=== PATIENT | male | born 1980 | race Two or more races ===

== ENCOUNTER 2021-10-20 16:57 | Inpatient (IN) | payer OTHER, MEDICAID, SELFPAY ==
[2021-10-20] VITALS (7 sets, daily range): BP systolic 80–112; BP diastolic 51–69; PULSE 89–131; RESP 19–22; TEMP 35–36.1; O2SAT 85–100; BMI 34.6
--- NOTE | 2021-10-20 | ECG_ITS ---
Test Reason : REPEAT Blood Pressure : / mmHG Vent. Rate : 096 BPM Atrial Rate : 096 BPM P-R Int : 126 ms QRS Dur : 086 ms QT Int : 366 ms P-R-T Axes : 073 029 023 degrees QTc Int : 462 ms Normal sinus rhythm Normal ECG No significant changes when compared with the previous EKG of same day Referred By: Enrike Carson Electronically Signed By:EMERY EPPERSON
--- NOTE | ~2021-10-20 | XR_ITS ---
EXAMINATION: XR CHEST CLINICAL INFORMATION: Overdose with hypoxia COMPARISON: None TECHNIQUE: Frontal view of the chest was obtained. FINDINGS: Lungs are hypoexpanded. Bibasilar atelectasis is present, left greater than right. Allowing for this, no other abnormalities are seen. XR/XR chest 1V IMPRESSION: Hypoexpanded lungs with bibasilar atelectasis.
--- NOTE | ~2021-10-20 | CT_ITS ---
EXAMINATION: CT HEAD WITHOUT CONTRAST CLINICAL INFORMATION: Altered mental status. COMPARISON: None. TECHNIQUE: Contiguous axial imaging was performed from the skull base to vertex without intravenous administration of contrast. This CT examination was performed using dose optimization techniques as appropriate, variously including the following: *Automated exposure control *Adjustment of mA and/or kV according to patient size (this includes techniques or standardized protocols for targeted exams where dose is matched to indication/reason for exam; i.e. extremities or head) *Use of iterative reconstruction technique DLP: 929 mGy-cm FINDINGS: There is no evidence of acute intracranial hemorrhage or edematous territorial infarction. There is no abnormal attenuation within the brain parenchyma. Petty-white matter differentiation is preserved. The ventricles are normal in size and configuration. No evidence for obstructive hydrocephalus. No abnormal mass effect or midline shift. No extra-axial fluid collections. No acute soft tissue or osseous abnormalities. Complete opacification of the right maxillary sinus and partial opacification of right ethmoid air cells and right frontal sinus. The content of the right maxillary sinus is slightly hyperattenuating and heterogeneous. The mastoids and middle ear cavities are clear. There are extensive periapical lucencies involving multiple right-sided superior teeth. CT/CT head/brain wo con IMPRESSION: No evidence of acute intracranial hemorrhage or edematous territorial infarction. Osteomeatal pattern of paranasal sinus disease with heterogeneous and slightly hyperattenuating content in the right maxillary sinus suggesting mucous desiccation or fungal hyphae. There are several periapical lucencies adjacent to the right maxillary sinus and an odontogenic sinusitis should be considered. Recommend dental referral.
--- NOTE | ~2021-10-20 | XR_ITS ---
EXAMINATION: XR CHEST CLINICAL INFORMATION: Hypoxia, possible aspiration COMPARISON: Chest x-ray on 10/20/2021 TECHNIQUE: Frontal view of the chest was obtained. FINDINGS: The cardiac silhouette is normal. There is mild diffuse bronchial wall thickening. There are no areas of consolidation. There are no pleural effusions or pneumothoraces. The bones and soft tissues are unremarkable for the patient's age. XR/XR chest 1V IMPRESSION: Bronchial wall thickening may be infectious and/or inflammatory in etiology.
--- NOTE | 2021-10-20 17:21 | ECG_ITS ---
Test Reason : AMS Blood Pressure : / mmHG Vent. Rate : 123 BPM Atrial Rate : 000 BPM P-R Int : 000 ms QRS Dur : 088 ms QT Int : 306 ms P-R-T Axes : 000 023 021 degrees QTc Int : 438 ms Atrial fibrillation with rapid ventricular response Abnormal ECG No previous ECGs available Referred By: Hubert Rosa Electronically Signed By:EMERY EPPERSON
--- NOTE | 2021-10-20 17:23 | ED.OVERDOSE ---
HPI - Overdose General Chief Complaint: Overdose Stated Complaint: Took Unknown Pill Time Seen by Provider: 10/20/21 17:19 Source: patient, family (Significant other), EMS and american sign language interpreter Mode of arrival: EMS Limitations: no limitations History of Present Illness HPI Narrative: 41-year-old male came in by ambulance for evaluation after overdose of unknown pill in both from the street. Patient has been complaining of toothache for the past couple days, patient brought from the street unknown blue pill was told is going to help for his pain, patient took the pills then shortly after call his girlfriend to come and help him because he did not feel right, noted to be incoherent, lethargic. Patient at the moment declined SI or HI, confirmed that he only took 1 blue pill of the 30 mg assuming to be Percocet. Related Data Allergies Allergy/AdvReac Type Severity Reaction Status Date / Time No Known Allergies Allergy Verified 10/20/21 17:20 Review of Systems Review of Systems: Yes Unobtainable due to mental condition and Unobtainable due to mental status (Patient is lethargic) [facility] Social History Social History Advance Directives: No Advance Directives Information Provided: Yes Physical Exam Vital Signs: Vital Signs: Last Vital Signs Temp 97 F 10/20/21 19:59 Pulse 97 10/20/21 19:59 Resp 19 10/20/21 19:59 BP 92/55 L 10/20/21 19:59 Pulse Ox 93 10/20/21 19:59 BMI result Body Mass Index 34.6 Vital signs have been reviewed as appeared to be correct. Blood pressure low. Heart rate elevated . Respiration rate normal. Temperature normal. Oxygen saturation low. Appearance: Alert. Oriented, lethargic, No acute distress. Head: Normal external exam. Normocephalic. Atraumatic. No Calles signs noted. No raccoon eyes noted Eyes: PERRLA. EOMI. Conjunctiva and sclera normal. Eyelids normal. ENT: TM's Normal. Pharynx normal. Uvula midline. Moist mucous membranes. No trismus noted. No drooling noted. No muffled voice noted. Neck: Normal inspection. Neck supple. FROM. No adenopathy. Thyroid Normal. No meningeal signs. No neck mass noted. CVS: Normal heart rate and rhythm. Heart sound normal. No murmurs noted. Pulses normal throughout. Respiratory: No respiratory distress. Painless inspiration. Breath sounds normal. No wheezes/rales/rhonchi noted. Chest nontender. No accessory muscle usage noted or decreased air movement noted. Abdomen: Soft and nontender. Bowel sounds normal in all 4 quadrants. No distention noted. No organomegaly noted. No visible injury noted. Back: No CVA tenderness. Full range of motion noted. Skin: Skin warm and dry. Normal skin color. Normal skin turgor. No rashes/lesions/lacerations noted. Extremities: No lower extremity edema. Extremities exhibit normal range of motion. Extremities nontender. Neuro: Lethargic, incoherent. Cranial nerve exam: II-XII are grossly intact No motor deficit. No sensory deficit. Reflexes normal. Course Course Course Narrative: Assessment and plan. 41-year-old male status post drug use only used 1 pill caused him to change mental status, tachycardia with new onset atrial fibrillation, patient remained hypotensive, with acute change of mental status. Abnormal findings partially improved after 2 mg of Narcan IV. 1. Patient became hypoxic, improved with 6 L of non-rebreather, chest x-ray is unremarkable for congestive heart failure or infectious process. 2. Hypotension which improved after 2 L of normal saline. 3. Tachycardia with new onset atrial fibrillation improved after IV hydration. 4. Change mental status has improved. 5. Elevation BUN creatinine expected to normalize after hydration and with repeat labs. 6. Elevated troponin will repeat in 3 hours. 7. Case discussed with Dr. Boyd for overnight observation in ICU since the patient is improving clinically Dr. Boyd approved the patient to be on the floor for observation. 8. Leukocytosis there is no source of infection. MDM - Overdose Lab Data Result diagrams: 10/20/21 17:26 10/20/21 17:26 Labs: Lab Results 10/20/21 10/20/21 10/20/21 Range/Units 17:26 17:26 17:26 WBC 20.4 H (4.8-10.8) X10*3/uL RBC 4.46 L (4.60-5.80) X10*6/uL Hgb 12.4 L (14.0-18.0) g/dl Hct 41.8 L (42.0-52.0) % MCV 93.7 (80.0-98.0) fL MCH 27.8 (27.0-33.0) pg MCHC 29.7 L (31.0-36.0) g/dl RDW 13.2 (11.0-16.0) % Plt Count 383 (160-400) X10*3/uL MPV 9.6 (9.4-12.4) fL Immature Gran % (Auto) 4.7 H (0.0-0.4) % Neut % (Auto) 87.1 H (45-73) % Lymph % (Auto) 5.7 L (20-40) % [place] % (Auto) 2.2 (2-11) % Eos % (Auto) 0.1 (0-4) % Baso % (Auto) 0.2 (0-2) % Lymph # (Auto) 1.2 (1.2-4.9) X10*3/uL [place] # (Auto) 0.5 (0.1-1.2) X10*3/uL Eos # (Auto) 0.0 (0.0-0.4) X10*3/uL Baso # (Auto) 0.1 (0.0-0.2) X10*3/uL Abs Immat Gran (auto) 0.95 H (0.00-0.03) X10*3/uL Absolute Neuts (auto) 17.8 H (2.0-8.3) x10*3/uL Absolute Nucleated RBC 0.000 (0.0-0.012) X10*3/uL Nucleated RBC % (auto) 0.0 (0.0-0.2) /100WBC VBG pH (7.32-7.43) VBG pCO2 mmHg VBG pO2 mmHg VBG HCO3 (22-26) mmol/L VBG O2 Saturation % VBG Base Excess mmol/L Sodium 141 (135-145) mmol/L Potassium 4.9 (3.3-5.1) mmol/L Chloride 107 (96-108) mmol/L Carbon Dioxide 18 L (22-29) mmol/L Anion Gap 21 H (12-20) BUN 17 H (9-16) mg/dL Creatinine 2.22 H (0.5-1.4) mg/dL Estim Creat Clear Calc 57.5 Estimated GFR 33 Random Glucose 152 H (60-115) mg/dL Calcium 9.3 (8.4-10.2) mg/dL Magnesium 2.6 (1.6-2.6) mg/dL Total Bilirubin < 0.2 (0.0-1.0) mg/dL Direct Bilirubin < 0.2 (0.0-0.5) mg/dL AST 41 H (5-37) U/L ALT 38 (0-40) U/L Alkaline Phosphatase 96 (39-117) U/L Troponin I High Sens (<3.5-35.0) ng/L B-Natriuretic Peptide 157 H (<100) pg/mL Total Protein 7.8 (6.5-8.0) g/dL Albumin 4.2 (3.5-5.0) g/dL Lipase 86 H (8-78) U/L Urine Color Urine Appearance Urine pH (5.0-8.0) Ur Specific [place] (1.005-1.025) Urine Protein (NEG-TRACE) MG/DL Urine Glucose (UA) (NEG) MG/DL Urine Ketones (NEG) MG/DL Urine Blood (NEG) Urine Nitrite (NEG) Ur Leukocyte Esterase (NEG) Salicylates < 5.0 L (15-30) mg/dL Urine Opiates Screen (Not Detect) Urine Fentanyl Screen (Not Detect) Acetaminophen < 1 (<30) mcg/mL Ur Barbiturates Screen (Not Detect) Ur Phencyclidine Scrn (Not Detect) Ur Amphetamines Screen (Not Detect) U Benzodiazepines Scrn (Not Detect) Urine Cocaine Screen (Not Detect) U Marijuana (THC) Screen (Not Detect) 10/20/21 10/20/21 10/20/21 Range/Units 17:54 17:54 19:19 WBC (4.8-10.8) X10*3/uL RBC (4.60-5.80) X10*6/uL Hgb (14.0-18.0) g/dl Hct (42.0-52.0) % MCV (80.0-98.0) fL MCH (27.0-33.0) pg MCHC (31.0-36.0) g/dl RDW (11.0-16.0) % Plt Count (160-400) X10*3/uL MPV (9.4-12.4) fL Immature Gran % (Auto) (0.0-0.4) % Neut % (Auto) (45-73) % Lymph % (Auto) (20-40) % [place] % (Auto) (2-11) % Eos % (Auto) (0-4) % Baso % (Auto) (0-2) % Lymph # (Auto) (1.2-4.9) X10*3/uL [place] # (Auto) (0.1-1.2) X10*3/uL Eos # (Auto) (0.0-0.4) X10*3/uL Baso # (Auto) (0.0-0.2) X10*3/uL Abs Immat Gran (auto) (0.00-0.03) X10*3/uL Absolute Neuts (auto) (2.0-8.3) x10*3/uL Absolute Nucleated RBC (0.0-0.012) X10*3/uL Nucleated RBC % (auto) (0.0-0.2) /100WBC VBG pH (7.32-7.43) VBG pCO2 mmHg VBG pO2 mmHg VBG HCO3 (22-26) mmol/L VBG O2 Saturation % VBG Base Excess mmol/L Sodium (135-145) mmol/L Potassium (3.3-5.1) mmol/L Chloride (96-108) mmol/L Carbon Dioxide (22-29) mmol/L Anion Gap (12-20) BUN (9-16) mg/dL Creatinine (0.5-1.4) mg/dL Estim Creat Clear Calc Estimated GFR Random Glucose (60-115) mg/dL Calcium (8.4-10.2) mg/dL Magnesium (1.6-2.6) mg/dL Total Bilirubin (0.0-1.0) mg/dL Direct Bilirubin (0.0-0.5) mg/dL AST (5-37) U/L ALT (0-40) U/L Alkaline Phosphatase (39-117) U/L Troponin I High Sens 39.1 H (<3.5-35.0) ng/L B-Natriuretic Peptide (<100) pg/mL Total Protein (6.5-8.0) g/dL Albumin (3.5-5.0) g/dL Lipase (8-78) U/L Urine Color YELLOW Urine Appearance CLEAR Urine pH 7.0 (5.0-8.0) Ur Specific [place] 1.010 (1.005-1.025) Urine Protein NEG (NEG-TRACE) MG/DL Urine Glucose (UA) NEG (NEG) MG/DL Urine Ketones NEG (NEG) MG/DL Urine Blood NEG (NEG) Urine Nitrite NEG (NEG) Ur Leukocyte Esterase NEG (NEG) Salicylates (15-30) mg/dL Urine Opiates Screen Not Detected (Not Detect) Urine Fentanyl Screen POSITIVE H (Not Detect) Acetaminophen (<30) mcg/mL Ur Barbiturates Screen Not Detected (Not Detect) Ur Phencyclidine Scrn Not Detected (Not Detect) Ur Amphetamines Screen Not Detected (Not Detect) U Benzodiazepines Scrn Not Detected (Not Detect) Urine Cocaine Screen POSITIVE H (Not Detect) U Marijuana (THC) Screen POSITIVE H (Not Detect) 10/20/21 Range/Units 19:19 WBC (4.8-10.8) X10*3/uL RBC (4.60-5.80) X10*6/uL Hgb (14.0-18.0) g/dl Hct (42.0-52.0) % MCV (80.0-98.0) fL MCH (27.0-33.0) pg MCHC (31.0-36.0) g/dl RDW (11.0-16.0) % Plt Count (160-400) X10*3/uL MPV (9.4-12.4) fL Immature Gran % (Auto) (0.0-0.4) % Neut % (Auto) (45-73) % Lymph % (Auto) (20-40) % [place] % (Auto) (2-11) % Eos % (Auto) (0-4) % Baso % (Auto) (0-2) % Lymph # (Auto) (1.2-4.9) X10*3/uL [place] # (Auto) (0.1-1.2) X10*3/uL Eos # (Auto) (0.0-0.4) X10*3/uL Baso # (Auto) (0.0-0.2) X10*3/uL Abs Immat Gran (auto) (0.00-0.03) X10*3/uL Absolute Neuts (auto) (2.0-8.3) x10*3/uL Absolute Nucleated RBC (0.0-0.012) X10*3/uL Nucleated RBC % (auto) (0.0-0.2) /100WBC VBG pH 7.28 L (7.32-7.43) VBG pCO2 35 mmHg VBG pO2 135 mmHg VBG HCO3 17 L (22-26) mmol/L VBG O2 Saturation 99.0 % VBG Base Excess -8.7 mmol/L Sodium (135-145) mmol/L Potassium (3.3-5.1) mmol/L Chloride (96-108) mmol/L Carbon Dioxide (22-29) mmol/L Anion Gap (12-20) BUN (9-16) mg/dL Creatinine (0.5-1.4) mg/dL Estim Creat Clear Calc Estimated GFR Random Glucose (60-115) mg/dL Calcium (8.4-10.2) mg/dL Magnesium (1.6-2.6) mg/dL Total Bilirubin (0.0-1.0) mg/dL Direct Bilirubin (0.0-0.5) mg/dL AST (5-37) U/L ALT (0-40) U/L Alkaline Phosphatase (39-117) U/L Troponin I High Sens (<3.5-35.0) ng/L B-Natriuretic Peptide (<100) pg/mL Total Protein (6.5-8.0) g/dL Albumin (3.5-5.0) g/dL Lipase (8-78) U/L Urine Color Urine Appearance Urine pH (5.0-8.0) Ur Specific [place] (1.005-1.025) Urine Protein (NEG-TRACE) MG/DL Urine Glucose (UA) (NEG) MG/DL Urine Ketones (NEG) MG/DL Urine Blood (NEG) Urine Nitrite (NEG) Ur Leukocyte Esterase (NEG) Salicylates (15-30) mg/dL Urine Opiates Screen (Not Detect) Urine Fentanyl Screen (Not Detect) Acetaminophen (<30) mcg/mL Ur Barbiturates Screen (Not Detect) Ur Phencyclidine Scrn (Not Detect) Ur Amphetamines Screen (Not Detect) U Benzodiazepines Scrn (Not Detect) Urine Cocaine Screen (Not Detect) U Marijuana (THC) Screen (Not Detect) Critical Care Time Critical Care Time Critical Care Time: Yes Total Critical Care Time: 60 Attestation: I spent 60 minutes providing critical care service to the patient, this including time spent at the bedside to evaluate the patient, reassess the patient, monitoring vital signs, review labs, and radiographic studies, counseling the patient/family, discussing the case with consultants, disposition the patient. Discharge Plan Discharge Clinical Impression: Drug overdose, Hypoxia, Hypotension, Acute kidney insufficiency, Elevated troponin, New onset a-fib Patient Disposition: Admitted As Inpatient
[2021-10-20 17:31] LABS: MANUAL DIFF FLAG NO
[2021-10-20 17:33] LABS: Basophils Absolute Auto 0.1 X10*3/uL (0.0-0.2); Basophils Percent Auto 0.2 % (0-2); Eosinophils Percent Auto 0.1 % (0-4); Hematocrit 41.8 % (42.0-52.0); Hemoglobin 12.4 g/dl (14.0-18.0); Imm Gran Abs Auto 0.95 X10*3/uL (0.00-0.03); Imm Gran Pct Auto 4.7 % (0.0-0.4); Lymphocytes Absolute Auto 1.2 X10*3/uL (1.2-4.9); Lymphocytes Percent Auto 5.7 % (20-40); Mean Corpuscular HGB Conc 29.7 g/dl (31.0-36.0); Mean Corpuscular Hemoglobin 27.8 pg (27.0-33.0); Mean Corpuscular Volume 93.7 fL (80.0-98.0); Mean Platelet Volume 9.6 fL (9.4-12.4); Monocytes Absolute Auto 0.5 X10*3/uL (0.1-1.2); Monocytes Percent Auto 2.2 % (2-11); Neutrophils Absolute Auto 17.8 x10*3/uL (2.0-8.3); Neutrophils Percent Auto 87.1 % (45-73); Platelet Count 383 X10*3/uL (160-400); Red Blood Count 4.46 X10*6/uL (4.60-5.80); Red Cell Distribution Width 13.2 % (11.0-16.0); White Blood Count 20.4 X10*3/uL (4.8-10.8)
[2021-10-20] MEDS: Naloxone HCl 2 MG/2 ML SYRINGE IVPUSH (17:37)
[2021-10-20] MEDS: 0.9 % Sodium Chloride 1,000 ML 999 ML IV (17:38)
[2021-10-20] MEDS: ondansetron HCL 4 MG/2 ML VIAL IVPUSH (17:49)
[2021-10-20 17:57] LABS: B Type Natriuretic Peptide 157 pg/mL (<100)
[2021-10-20 18:06] LABS: Acetaminophen LAB < 1 mcg/mL (<30); Alanine Aminotransferase 38 U/L (0-40); Albumin Level 4.2 g/dL (3.5-5.0); Alkaline Phosphatase 96 U/L (39-117); Anion Gap 21 (12-20); Aspartate Amino Transferase 41 U/L (5-37); Bilirubin Direct < 0.2 mg/dL (0.0-0.5); Bilirubin Total < 0.2 mg/dL (0.0-1.0); Blood Urea Nitrogen 17 mg/dL (9-16); Calcium 9.3 mg/dL (8.4-10.2); Carbon Dioxide 18 mmol/L (22-29); Chloride 107 mmol/L (96-108); Creatinine Clr Calc Pharmacy 57.5; Estimated Glomerular Filt Rate 33; Glucose Random 152 mg/dL (60-115); Lipase 86 U/L (8-78); Potassium 4.9 mmol/L (3.3-5.1); Salicylate < 5.0 mg/dL (15-30); Sodium 141 mmol/L (135-145); Total Protein 7.8 g/dL (6.5-8.0)
[2021-10-20 18:20] LABS: Appearance Urine CLEAR; Color Urine YELLOW; Glucose Urine UA NEG (NEG); Leukocyte Esterase Urine NEG (NEG); Nitrite Urine NEG (NEG); Urine Blood NEG (NEG); Urine Ketones NEG (NEG); Urine Protein NEG (NEG-TRACE)
[2021-10-20 18:22] LABS: Magnesium 2.6 mg/dL (1.6-2.6)
[2021-10-20 18:32] LABS: Amphetamine Screen Urine Not Detected (Not Detect); Barbiturates, Urine Not Detected (Not Detect); Benzodiazepines Screen Urine Not Detected (Not Detect); Cannabinoid Screen Urine POSITIVE (Not Detect); Cocaine Screen Urine POSITIVE (Not Detect); Fentanyl, urine POSITIVE (Not Detect); Opiate Screen Urine Not Detected (Not Detect); Phencyclidine Screen Urine Not Detected (Not Detect)
--- NOTE | 2021-10-20 19:04 | PC.NURSE ---
patient noted to be in a NS rhythm at this time. repeat EKG performed
[2021-10-20 19:24] LABS: Venous Blood Gas Refer to POC result
[2021-10-20 19:25] LABS: VBG Base Excess -8.7 mmol/L; VBG HCO3 17 mmol/L (22-26); VBG pCO2 35 mmHg; VBG pH 7.28 (7.32-7.43); VBG pO2 135 mmHg
[2021-10-20 19:42] LABS: Troponin-I High Sensitivity 39.1 ng/L (<3.5-35.0)
--- NOTE | 2021-10-20 20:45 | PHA.MEDREC ---
Pharmacy Consult ? Medication Reconciliation Pharmacy has completed the medication reconciliation.
--- NOTE | 2021-10-20 21:24 | PM.IMHP ---
History of Present Illness Date of Service: 10/20/21 Chief Complaint: AMS 41-year-old male with no significant past medical history presented to the hospital with a chief complaint of drug overdose/altered mental status. Most of the history obtained from the patient and patient's the girlfriend at bedside. Reportedly patient has been having toothache and had brought but he thought his of Percocet off the market; mentioned that it was 30 mg. He took it and followed by he felt disoriented, lightheaded dizzy could not walk generally weak; sat harm self onto the floor; followed by girlfriend found him on the floor and noted very disoriented subsequently EMS was called in; EMS noted the patient tachycardic to 140s-EKG showed new onset AFib; patient also noted to be drowsy, pale, soft blood pressure; also noted to be saturating 81% on room air; subsequently brought him to the hospital for further evaluation. Patient denies any loss of consciousness. Denies any chest pain or palpitations. At the time of find reports he has a dizziness/ lightheadedness significantly improved. Denies any postnasal drip. Denies any headaches numbness tingling or focal weakness. Denies any prior history of cocaine use. Reports he smokes Ruby. Review of all other systems is negative except mentioned above ER course: Per ER team patient on presentation noted to be pale with hypotension with systolic in 80s; given IV fluids, Narcan; spoken to poison control who suggested observation; blood pressure gradually improved with IV fluids. On labs also noted to have elevated creatinine. U tox positive for cocaine, fentanyl; the follow-up EKG showed normal sinus rhythm. Admitted to the hospital for further management. [facility] Pertinent family history: Reviewed Social History Advance Directives: No Advance Directives Information Provided: Yes Meds Allergies Allergy/AdvReac Type Severity Reaction Status Date / Time No Known Allergies Allergy Verified 10/20/21 17:20 Active Medications: Current Medications Acetaminophen (Acetaminophen 325 Mg Tablet) 650 mg PO Q6H PRN PRN Reason: Pain, Mild (Pain Scale 1-3) Dextrose/Sodium Chloride (D5ns) 1,000 mls @ 100 mls/hr IVCONT .Q10H TISH Melatonin (Melatonin 3 Mg Tablet) 6 mg PO BEDTIME PRN PRN Reason: Insomnia Senna (Sennosides 8.6 Mg Tablet) 17.2 mg PO BEDTIME PRN PRN Reason: Constipation Sodium Chloride (0.9 % Sodium Chloride Flush 3 Ml Syringe) 3 ml IVFLUSH QSHIFT [facility] Home Medications Medication Instructions Recorded Confirmed Last Taken Type No Known Home Meds 10/20/21 10/20/21 Unknown History Physical Exam Vital Signs and Narrative: Vital Signs: Last Vital Signs Temp 97 F 10/20/21 19:59 Pulse 95 10/20/21 20:46 Resp 22 H 10/20/21 20:46 BP 102/60 10/20/21 20:46 Pulse Ox 100 10/20/21 20:46 BMI result Body Mass Index 34.6 Gen: Appears be in no acute distress HEENT: NCAT, Moist mucosa. Pulmonary: Vesicular breath sounds, fair air entry CVS: Normal S1-S2 Abdomen: BS+, Soft, Nontender Extremities: Warm well perfused Neuro: Alert and awake. Results Labs CBC and Chem 7: 10/20/21 17:26 10/20/21 17:26 Labs: Laboratory Results - last 24 hr 10/20/21 10/20/21 10/20/21 17:26 17:26 17:26 MCV 93.7 MCH 27.8 MCHC 29.7 L RDW 13.2 Plt Count 383 MPV 9.6 Immature Gran % (Auto) 4.7 H Neut % (Auto) 87.1 H Lymph % (Auto) 5.7 L [place] % (Auto) 2.2 Eos % (Auto) 0.1 Baso % (Auto) 0.2 Lymph # (Auto) 1.2 [place] # (Auto) 0.5 Eos # (Auto) 0.0 Baso # (Auto) 0.1 Abs Immat Gran (auto) 0.95 H Absolute Neuts (auto) 17.8 H Absolute Nucleated RBC 0.000 Nucleated RBC % (auto) 0.0 VBG pH VBG pCO2 VBG pO2 VBG HCO3 VBG O2 Saturation VBG Base Excess Anion Gap 21 H Estim Creat Clear Calc 57.5 Estimated GFR 33 Random Glucose 152 H Calcium 9.3 Magnesium 2.6 Total Bilirubin < 0.2 Direct Bilirubin < 0.2 AST 41 H ALT 38 Alkaline Phosphatase 96 B-Natriuretic Peptide 157 H Total Protein 7.8 Albumin 4.2 Lipase 86 H Urine Color Urine Appearance Urine pH Ur Specific [place] Urine Protein Urine Glucose (UA) Urine Ketones Urine Blood Urine Nitrite Ur Leukocyte Esterase Salicylates < 5.0 L Urine Opiates Screen Urine Fentanyl Screen Acetaminophen < 1 Ur Barbiturates Screen Ur Phencyclidine Scrn Ur Amphetamines Screen U Benzodiazepines Scrn Urine Cocaine Screen U Marijuana (THC) Screen 10/20/21 10/20/21 10/20/21 17:54 17:54 19:19 MCV MCH MCHC RDW Plt Count MPV Immature Gran % (Auto) Neut % (Auto) Lymph % (Auto) [place] % (Auto) Eos % (Auto) Baso % (Auto) Lymph # (Auto) [place] # (Auto) Eos # (Auto) Baso # (Auto) Abs Immat Gran (auto) Absolute Neuts (auto) Absolute Nucleated RBC Nucleated RBC % (auto) VBG pH 7.28 L VBG pCO2 35 VBG pO2 135 VBG HCO3 17 L VBG O2 Saturation 99.0 VBG Base Excess -8.7 Anion Gap Estim Creat Clear Calc Estimated GFR Random Glucose Calcium Magnesium Total Bilirubin Direct Bilirubin AST ALT Alkaline Phosphatase B-Natriuretic Peptide Total Protein Albumin Lipase Urine Color YELLOW Urine Appearance CLEAR Urine pH 7.0 Ur Specific [place] 1.010 Urine Protein NEG Urine Glucose (UA) NEG Urine Ketones NEG Urine Blood NEG Urine Nitrite NEG Ur Leukocyte Esterase NEG Salicylates Urine Opiates Screen Not Detected Urine Fentanyl Screen POSITIVE H Acetaminophen Ur Barbiturates Screen Not Detected Ur Phencyclidine Scrn Not Detected Ur Amphetamines Screen Not Detected U Benzodiazepines Scrn Not Detected Urine Cocaine Screen POSITIVE H U Marijuana (THC) Screen POSITIVE H Imaging Radiologist's Impressions: Impressions Chest X-Ray 10/20/21 18:19 IMPRESSION: Hypoexpanded lungs with bibasilar atelectasis. Head CT 10/20/21 20:43 IMPRESSION: No evidence of acute intracranial hemorrhage or edematous territorial infarction. Osteomeatal pattern of paranasal sinus disease with heterogeneous and slightly hyperattenuating content in the right maxillary sinus suggesting mucous desiccation or fungal hyphae. There are several periapical lucencies adjacent to the right maxillary sinus and an odontogenic sinusitis should be considered. Recommend dental referral. Assessment and Plan (1) Drug overdose: Status: Acute (2) Hypoxia: Status: Acute (3) Hypotension: Status: Acute (4) Acute kidney insufficiency: Status: Acute (5) Elevated troponin: Status: Acute (6) New onset a-fib: Status: Acute Plan 41-year-old male with no significant past medical history presented to the hospital with a chief complaint of drug overdose/altered mental status. Drug overdose/altered mental status: Patient took off the market Percocet 30 mg; later mentions is a fake Percocet. Presented with drowsiness/ dizziness/ hypotension/hypoxia status post Narcan in the ER U tox positive for cocaine and fentanyl Mental status improved to baseline as per the girlfriend at bedside Patient currently oriented x3 Poison control was notified Monitor on telemetry Hypoxia: Likely secondary to drug overdose. Improving. On supplemental oxygen p.r.n.. Chest x-ray showed no acute findings. New onset AFib: Patient had brief episode of AFib. Which now currently converted normal sinus rhythm. Will obtain echocardiogram and TSH. Cardiology follow-up. HERNAN: Likely prerenal. continue IV fluids. Hypotension: The setting of drug overdose. Improving with IV fluids. Continue maintenance fluids. Elevated troponins: Likely in the setting of demand. Patient denies any chest pain. EKG nonischemic. Leukocytosis: Likely reactive. Will monitor Sinusitis: CT head showed Osteomeatal pattern of paranasal sinus disease with heterogeneous and slightly hyperattenuating content in the right maxillary sinus suggesting mucous desiccation or fungal hyphae. There are several periapical lucencies adjacent to the right maxillary sinus and an odontogenic sinusitis should be considered. Recommend dental referral. will consult ID Will start the patient on Augmentin ENT follow-up recommended DVT prophylaxis: SCD boots Code status: Full code Quality Stroke Does the patient have a stroke diagnosis?: No VTE Prior VTE?: No VTE Risk Level:: Medical - moderate - high VTE Device Contraindication: N/A - Device Ordered VTE Drug Contraindication: Treatment Not Indicated
[2021-10-20 21:57] LABS: COVID-19 Test Negative (Negative)
[2021-10-20 22:01] LABS: Anion Gap 12 (12-20); Blood Urea Nitrogen 16 mg/dL (9-16); Calcium 6.8 mg/dL (8.4-10.2); Carbon Dioxide 17 mmol/L (22-29); Chloride 115 mmol/L (96-108); Creatinine Clr Calc Pharmacy 81.9; Estimated Glomerular Filt Rate 49; Glucose Random 49 mg/dL (60-115); Potassium 4.1 mmol/L (3.3-5.1); Sodium 140 mmol/L (135-145)
[2021-10-20 22:12] LABS: Glucose, Whole Blood 52 mg/dL (60-115)
[2021-10-20] MEDS: Dextrose 5 % and 0.9 % NaCl 1,000 ML 100 ML IVCONT (22:12)
[2021-10-20 22:14] LABS: Troponin-I High Sensitivity 91.7 ng/L (<3.5-35.0)
[2021-10-20] MEDS: Amoxicillin/Potassium Clav 875 MG TABLET PO (22:17)
[2021-10-20 22:31] LABS: Glucose, Whole Blood 53 mg/dL (60-115)
--- NOTE | 2021-10-20 22:51 | PC.NURSE ---
2200 Per lab, BG = 49 Dr. Arellano made aware [address] Arellano, give pt some juice Pt given OJ. Pt tolerated well 2229 Repea BG = 53 Pt given more OJ and PBJ sandwich Pt tolerated well 2244 BG = 81
[2021-10-20 22:52] LABS: Glucose, Whole Blood 81 mg/dL (60-115)
[2021-10-20 23:16] LABS: Glucose, Whole Blood 105 mg/dL (60-115)
--- NOTE | 2021-10-21 | ECG_ITS ---
Test Reason : RHYTHM CHECK Blood Pressure : / mmHG Vent. Rate : 086 BPM Atrial Rate : 086 BPM P-R Int : 128 ms QRS Dur : 086 ms QT Int : 376 ms P-R-T Axes : 043 018 008 degrees QTc Int : 449 ms Normal sinus rhythm Normal ECG When compared with ECG of 20-OCT-2021 18:58, No significant change was found Referred By: Hubert Rosa Electronically Signed By:EMERY EPPERSON
--- NOTE | 2021-10-21 01:04 | PC.NURSE ---
Report given from ED nurse around 21:28. Patient arrived on unit at same time as other ED patient, 21:41. Pt's BS 49. Dr Arellano notified. Pt alert and able to take PO. Patient ate a sandwich and some juice. POC recheck, 52. Pt given another snack. D5NS infusing at 100mls/hr. POC recheck, 81. Pt states he feels much better. Last POC recheck at 23:15 was 105. Pt's BP was also soft-see MAR. Pt allowed to sleep at this time with fluids infusing and frequent BP checks. Will continue to monitor closely.
[2021-10-21 02:46] VITALS: BP 98/61; PULSE 96; RESP 22; O2SAT 96
[2021-10-21 03:22] LABS: Glucose, Whole Blood 113 mg/dL (60-115)
[2021-10-21 06:18] VITALS: BP 108/70; PULSE 90; RESP 20; O2SAT 95
[2021-10-21 06:50] LABS: Anion Gap 12 (12-20); Blood Urea Nitrogen 19 mg/dL (9-16); Calcium 8.4 mg/dL (8.4-10.2); Carbon Dioxide 24 mmol/L (22-29); Chloride 108 mmol/L (96-108); Creatinine Clr Calc Pharmacy 90.6; Estimated Glomerular Filt Rate 55; Glucose Random 112 mg/dL (60-115); Potassium 4.7 mmol/L (3.3-5.1); Sodium 139 mmol/L (135-145)
[2021-10-21 06:51] LABS: Glucose, Whole Blood 105 mg/dL (60-115)
[2021-10-21 06:56] LABS: Hematocrit 33.1 % (42.0-52.0); Hemoglobin 10.2 g/dl (14.0-18.0); Mean Corpuscular HGB Conc 30.8 g/dl (31.0-36.0); Mean Corpuscular Hemoglobin 27.7 pg (27.0-33.0); Mean Corpuscular Volume 89.9 fL (80.0-98.0); Platelet Count 249 X10*3/uL (160-400); Red Blood Count 3.68 X10*6/uL (4.60-5.80); Red Cell Distribution Width 13.3 % (11.0-16.0); White Blood Count 16.1 X10*3/uL (4.8-10.8)
[2021-10-21 07:48] LABS: Band Neutrophils Percent 17 % (3-5); Lymphocytes Absolute Manual 0.3 X10*3/uL (1.2-4.9); Lymphocytes Percent Manual 2 % (20-40); Monocytes Absolute Manual 0.3 X10*3/uL (0.1-1.2); Monocytes Percent Manual 2 % (2-11); Neutrophils Absolute Manual 15.5 X10*3/uL (2.0-8.3); Neutrophils Percent Manual 79 % (45-73)
[2021-10-21 07:49] LABS: Hypochromasia 1+ (5-14) /OIF; Platelet Estimate NORMAL (NORMAL); Platelet Morphology Comment NORMAL; RBC Morphology NOTED
[2021-10-21 08:58] LABS: Thyroid Stimulating Hormone 0.32 uIU/mL (0.32-4.0)
[2021-10-21] MEDS: Dextrose 5 % and 0.9 % NaCl 1,000 ML 100 ML IVCONT (09:04)
--- NOTE | 2021-10-21 09:30 | CA_ITS ---
Transthoracic Echocardiogram Patient (Last, First, Middle): Ubaldo Peoples U Gender: Male Date of : 1980 Age: 41 Procedure Date: 10/21/2021 Procedure Type: Transthoracic Echocardiogram Location: ER Height: 182.88 cm Weight: 115.67 kg BSA: 2.36 m2 Heart Rate: bpm BP: 108 / 70 mmHg Orthotic Aide: AMAURY Referring MD: Luis Eduardo Arellano MD Symptoms: new onset afib- breif episode Study Quality: Technically Difficult/Contrast ECG Rhythm: Sinus Conclusions: - The left ventricular systolic function is normal. The calculated ejection fraction is 60% by biplane method. - No obvious valvular pathology seen on this study. Findings Procedure Information Contrast agent, definity, is being given per protocol without apparent complications. Left Ventricle Normal left ventricular cavity size. There is normal left ventricular wall thickness. The left ventricular systolic function is normal. The calculated ejection fraction is 60% by biplane method. There is no evidence of regional wall motion abnormalities. Diastolic function is normal for age. Right Ventricle Normal right ventricular cavity size and systolic function. Atria Both atria are normal in size. Aortic Valve There is a normal trileaflet aortic valve. There is no aortic valve stenosis. There is no aortic valve regurgitation. Mitral Valve The mitral valve appears normal. There is no mitral valve regurgitation. There is no mitral valve stenosis. Pulmonic Valve The pulmonic valve was not well visualized. Tricuspid Valve Normal tricuspid valve structure. There is trace tricuspid valve regurgitation. The pulmonary artery systolic pressure is normal. Great Vessels The aortic annulus, sinuses of valsalva, and asc aorta are normal in size. Venous The inferior vena cava is normal in size and collapses greater than 50% with inspiration. Pericardium/Pleural There is no evidence of pericardial effusion. Prior Study Comparison No prior study available for comparison. Recommendations, Care & Conclusions No obvious valvular pathology seen on this study. Measurements 2D Linear Measurements IVSd: 0.94 0.6-0.9/0.6-1.0 cm LVIDd: 5.05 3.9-5.3/4.2-5.9 cm LVIDd Index: 2.14 2.4-3.2/2.2-3.1 cm/m2 LVIDs: 3.14 2.0-3.6 cm LVPWd: 1.11 0.7-1.1 cm LA Diam: 3.60 2.7-3.8/3.0-4.0 cm LAIDs Index: 1.53 1.5-2.3 cm/m2 LV Mass: 238.60 67-162/88-224 g LV Mass Index: 101.10 43-95/49-115 g/m2 LVOT Diam: 2.10 3.0+(-)1.3 cm 2D Systolic Function EF 4C: 60.80 >55% EF 2C: 64.30 >55% EF BiP: 60.40 >55% Mitral Valve MV Pk E: 1.14 MV PK A: 0.67 MV Decel Time: 135.00 E/A: 1.70 E'Lateral: 13.80 E'Medial: 11.10 E/E' Med: 10.30 E/E' Lat: 8.30 PHT: 40.00 MVA PHT: 5.50 Decel Carlton: 8.41 Aortic Valve AoV Pk Gordon: 1.58 AoV Mn Gordon: 1.21 AoV VTI: 0.28 AoV Pk Grad: 10.00 Aov Mn Grad: 6.00 LVOT LVOT Diam: 2.10 LVOT Area: 3.46 Diastolic Function MV Pk E: 1.14 MV Pk A: 0.67 E/A: 1.70 E'Medial: 11.10 E/E' Med: 10.30 E' Laterial: 13.80 E/E' Lat: 8.30 Right Ventricle TAPSE (mm): 28.00 TVS' Gordon: 16.90 Tricuspid Valve TR Pk Gordon: 2.09 TR Pk Grad: 17.00 RA Press: 8.00 RVSP: 25.00 Great Vessels Aorta Sinus of Valsalva: 3.28 2.0-3.[address] [place]: 2.71 1.7-3.4 cm Ao Asc: 3.10 2.1-3.4 cm Updated in Other Vendor System with Status of Final Phuc Nieto MD electronically signed on 10/21/2021 4:33:36 PM with status of Final
--- NOTE | 2021-10-21 09:47 | MHC.CM.PN ---
CM MET WITH PT AND S/O WHO WAS AT BEDSIDE PT HAS HIS OWN APARTMENT BUT IS USUALLY AT HIS 'S THEY REPORT HE IS COMPLETELY INDEPENDENT, HAS NO DME AND NO SERVICES PT ALSO HAS NO PCP AND THEY BOTH DECLINE ASSISTANCE IN OBTAINING ONE. PTS S/O REPORTS SHE HAS SET HIM UP WITH SEVERAL NEW PCP APPTS AND HE ALWAYS NO SHOWS CURRENT DC PLAN IS HOME WITH NO SERVICES S/O TO TRANSPORT
--- NOTE | 2021-10-21 10:20 | PC.NURSE ---
Pt is A&Ox3, LCA, NSR on monitor, no complaints of pain at this time. Echo at bedside, call ornelas within reach. Will continue to monitor.
[2021-10-21] MEDS: Amoxicillin/Potassium Clav 875 MG TABLET PO ×2 (11:26→21:10)
--- NOTE | 2021-10-21 11:49 | P.PNIM_ITS ---
Subjective Subjective Date of Service: 10/21/21 Interval History: the patient was seen and evaluated this morning Laying in bed, feels improvement since presentation yesterday Still requiring oxygen supplement Converted back to sinus rhythm No reported other overnight events. Systemic review: No fever, chills but reports generalized weakness No chest pain, palpitation Report minimal shortness of breath No abdominal pain, nausea or vomiting No urinary symptoms No any rash or wounds Physical Exam Vital Signs: Vital Signs: Last Vital Signs Temp 97 F 10/20/21 19:59 Pulse 90 10/21/21 06:18 Resp 20 10/21/21 06:18 BP 108/70 10/21/21 06:18 Pulse Ox 95 10/21/21 06:18 BMI result Body Mass Index 34.6 Const: Other: Constitutional : Alert, oriented, not in distress Neck : Normal inspection, Supple Cardiovascular : RRR, S1 S2, no lower extremity edema Respiratory : Good bilateral air entry, basal bilateral coarse crackles, wheezes or rhonchi, on oxygen supplement Gastrointestinal: soft, lax, Normal bowel sounds, Non tender Skin : Warm, Dry Neurological : Alert & oriented x3, No focal deficit Objective Data Active Medications Acetaminophen (Acetaminophen 325 Mg Tablet) 650 mg PO Q6H PRN PRN Reason: Pain, Mild (Pain Scale 1-3) Amoxicillin/Clavulanate Potassium (Amoxicillin/Potassium Clav 875 Mg Tablet) 875 mg PO Q12H [facility] Last Admin: 10/21/21 11:26 Dose: 875 mg Documented by: KATHLEEN Dextrose/Sodium Chloride (D5ns) 1,000 mls @ 100 mls/hr IVCONT .Q10H [facility] Last Admin: 10/21/21 09:04 Dose: 100 mls/hr Documented by: KATHLEEN Melatonin (Melatonin 3 Mg Tablet) 6 mg PO BEDTIME PRN PRN Reason: Insomnia Senna (Sennosides 8.6 Mg Tablet) 17.2 mg PO BEDTIME PRN PRN Reason: Constipation Sodium Chloride (0.9 % Sodium Chloride Flush 3 Ml Syringe) 3 ml IVFLUSH QSHIFT [facility] Last Admin: 10/21/21 09:04 Dose: Not Given Documented by: KATHLEEN Non-Admin Reason: IV Running Labs CBC & Chem 7: 10/21/21 06:27 10/21/21 06:27 Labs: Laboratory Results - last 24 hr 10/20/21 10/20/21 10/20/21 17:26 17:26 17:26 MCV 93.7 MCH 27.8 MCHC 29.7 L RDW 13.2 Plt Count 383 MPV 9.6 Immature Gran % (Auto) 4.7 H Neut % (Auto) 87.1 H Lymph % (Auto) 5.7 L [place] % (Auto) 2.2 Eos % (Auto) 0.1 Baso % (Auto) 0.2 Lymph # (Auto) 1.2 [place] # (Auto) 0.5 Eos # (Auto) 0.0 Baso # (Auto) 0.1 Abs Immat Gran (auto) 0.95 H Absolute Neuts (auto) 17.8 H Absolute Nucleated RBC 0.000 Nucleated RBC % (auto) 0.0 Neutrophils % (Manual) Band Neutrophils % Lymphocytes % (Manual) Monocytes % (Manual) Abs Neuts (Manual) Lymphocytes # (Manual) Monocytes # (Manual) Platelet Estimate Plt Morphology Comment RBC Morphology Hypochromasia VBG pH VBG pCO2 VBG pO2 VBG HCO3 VBG O2 Saturation VBG Base Excess Anion Gap 21 H Estim Creat Clear Calc 57.5 Estimated GFR 33 POC Glucose Random Glucose 152 H Calcium 9.3 Magnesium 2.6 Total Bilirubin < 0.2 Direct Bilirubin < 0.2 AST 41 H ALT 38 Alkaline Phosphatase 96 Total Creatine Kinase 111 B-Natriuretic Peptide 157 H Total Protein 7.8 Albumin 4.2 Lipase 86 H TSH Urine Color Urine Appearance Urine pH Ur Specific [place] Urine Protein Urine Glucose (UA) Urine Ketones Urine Blood Urine Nitrite Ur Leukocyte Esterase Salicylates < 5.0 L Urine Opiates Screen Urine Fentanyl Screen Acetaminophen < 1 Ur Barbiturates Screen Ur Phencyclidine Scrn Ur Amphetamines Screen U Benzodiazepines Scrn Urine Cocaine Screen U Marijuana (THC) Screen COVID-19 (RAF) COVID-19 Clin Com 10/20/21 10/20/21 10/20/21 17:54 17:54 19:19 MCV MCH MCHC RDW Plt Count MPV Immature Gran % (Auto) Neut % (Auto) Lymph % (Auto) [place] % (Auto) Eos % (Auto) Baso % (Auto) Lymph # (Auto) [place] # (Auto) Eos # (Auto) Baso # (Auto) Abs Immat Gran (auto) Absolute Neuts (auto) Absolute Nucleated RBC Nucleated RBC % (auto) Neutrophils % (Manual) Band Neutrophils % Lymphocytes % (Manual) Monocytes % (Manual) Abs Neuts (Manual) Lymphocytes # (Manual) Monocytes # (Manual) Platelet Estimate Plt Morphology Comment RBC Morphology Hypochromasia VBG pH 7.28 L VBG pCO2 35 VBG pO2 135 VBG HCO3 17 L VBG O2 Saturation 99.0 VBG Base Excess -8.7 Anion Gap Estim Creat Clear Calc Estimated GFR POC Glucose Random Glucose Calcium Magnesium Total Bilirubin Direct Bilirubin AST ALT Alkaline Phosphatase Total Creatine Kinase B-Natriuretic Peptide Total Protein Albumin Lipase TSH Urine Color YELLOW Urine Appearance CLEAR Urine pH 7.0 Ur Specific [place] 1.010 Urine Protein NEG Urine Glucose (UA) NEG Urine Ketones NEG Urine Blood NEG Urine Nitrite NEG Ur Leukocyte Esterase NEG Salicylates Urine Opiates Screen Not Detected Urine Fentanyl Screen POSITIVE H Acetaminophen Ur Barbiturates Screen Not Detected Ur Phencyclidine Scrn Not Detected Ur Amphetamines Screen Not Detected U Benzodiazepines Scrn Not Detected Urine Cocaine Screen POSITIVE H U Marijuana (THC) Screen POSITIVE H COVID-19 (RAF) COVID-19 Clin Com 10/20/21 10/20/21 10/20/21 21:36 21:36 22:07 MCV MCH MCHC RDW Plt Count MPV Immature Gran % (Auto) Neut % (Auto) Lymph % (Auto) [place] % (Auto) Eos % (Auto) Baso % (Auto) Lymph # (Auto) [place] # (Auto) Eos # (Auto) Baso # (Auto) Abs Immat Gran (auto) Absolute Neuts (auto) Absolute Nucleated RBC Nucleated RBC % (auto) Neutrophils % (Manual) Band Neutrophils % Lymphocytes % (Manual) Monocytes % (Manual) Abs Neuts (Manual) Lymphocytes # (Manual) Monocytes # (Manual) Platelet Estimate Plt Morphology Comment RBC Morphology Hypochromasia VBG pH VBG pCO2 VBG pO2 VBG HCO3 VBG O2 Saturation VBG Base Excess Anion Gap 12 Estim Creat Clear Calc 81.9 Estimated GFR 49 POC Glucose 52 L* Random Glucose 49 L* Calcium 6.8 L D Magnesium Total Bilirubin Direct Bilirubin AST ALT Alkaline Phosphatase Total Creatine Kinase B-Natriuretic Peptide Total Protein Albumin Lipase TSH Urine Color Urine Appearance Urine pH Ur Specific [place] Urine Protein Urine Glucose (UA) Urine Ketones Urine Blood Urine Nitrite Ur Leukocyte Esterase Salicylates Urine Opiates Screen Urine Fentanyl Screen Acetaminophen Ur Barbiturates Screen Ur Phencyclidine Scrn Ur Amphetamines Screen U Benzodiazepines Scrn Urine Cocaine Screen U Marijuana (THC) Screen COVID-19 (RAF) Negative COVID-19 Clin Com See Note 10/20/21 10/20/21 10/20/21 22:27 22:48 23:12 MCV MCH MCHC RDW Plt Count MPV Immature Gran % (Auto) Neut % (Auto) Lymph % (Auto) [place] % (Auto) Eos % (Auto) Baso % (Auto) Lymph # (Auto) [place] # (Auto) Eos # (Auto) Baso # (Auto) Abs Immat Gran (auto) Absolute Neuts (auto) Absolute Nucleated RBC Nucleated RBC % (auto) Neutrophils % (Manual) Band Neutrophils % Lymphocytes % (Manual) Monocytes % (Manual) Abs Neuts (Manual) Lymphocytes # (Manual) Monocytes # (Manual) Platelet Estimate Plt Morphology Comment RBC Morphology Hypochromasia VBG pH VBG pCO2 VBG pO2 VBG HCO3 VBG O2 Saturation VBG Base Excess Anion Gap Estim Creat Clear Calc Estimated GFR POC Glucose 53 L* 81 105 Random Glucose Calcium Magnesium Total Bilirubin Direct Bilirubin AST ALT Alkaline Phosphatase Total Creatine Kinase B-Natriuretic Peptide Total Protein Albumin Lipase TSH Urine Color Urine Appearance Urine pH Ur Specific [place] Urine Protein Urine Glucose (UA) Urine Ketones Urine Blood Urine Nitrite Ur Leukocyte Esterase Salicylates Urine Opiates Screen Urine Fentanyl Screen Acetaminophen Ur Barbiturates Screen Ur Phencyclidine Scrn Ur Amphetamines Screen U Benzodiazepines Scrn Urine Cocaine Screen U Marijuana (THC) Screen COVID-19 (RAF) COVID-19 [employer] Com 10/21/21 10/21/21 10/21/21 03:17 06:27 06:27 MCV 89.9 MCH 27.7 MCHC 30.8 L RDW 13.3 Plt Count 249 D MPV 10.0 Immature Gran % (Auto) Cancelled Neut % (Auto) Cancelled Lymph % (Auto) Cancelled [place] % (Auto) Cancelled Eos % (Auto) Cancelled Baso % (Auto) Cancelled Lymph # (Auto) Cancelled [place] # (Auto) Cancelled Eos # (Auto) Cancelled Baso # (Auto) Cancelled Abs Immat Gran (auto) Cancelled Absolute Neuts (auto) Cancelled Absolute Nucleated RBC 0.000 Nucleated RBC % (auto) 0.0 Neutrophils % (Manual) 79 H Band Neutrophils % 17 H Lymphocytes % (Manual) 2 L Monocytes % (Manual) 2 Abs Neuts (Manual) 15.5 H Lymphocytes # (Manual) 0.3 L Monocytes # (Manual) 0.3 Platelet Estimate NORMAL Plt Morphology Comment NORMAL RBC Morphology NOTED Hypochromasia 1+ (5-14) VBG pH VBG pCO2 VBG pO2 VBG HCO3 VBG O2 Saturation VBG Base Excess Anion Gap 12 Estim Creat Clear Calc 90.6 Estimated GFR 55 POC Glucose 113 Random Glucose 112 D Calcium 8.4 D Magnesium Total Bilirubin Direct Bilirubin AST ALT Alkaline Phosphatase Total Creatine Kinase B-Natriuretic Peptide Total Protein Albumin Lipase TSH 0.32 Urine Color Urine Appearance Urine pH Ur Specific [place] Urine Protein Urine Glucose (UA) Urine Ketones Urine Blood Urine Nitrite Ur Leukocyte Esterase Salicylates Urine Opiates Screen Urine Fentanyl Screen Acetaminophen Ur Barbiturates Screen Ur Phencyclidine Scrn Ur Amphetamines Screen U Benzodiazepines Scrn Urine Cocaine Screen U Marijuana (THC) Screen COVID-19 (RAF) COVID-19 [employer] Com 10/21/21 06:46 MCV MCH MCHC RDW Plt Count MPV Immature Gran % (Auto) Neut % (Auto) Lymph % (Auto) [place] % (Auto) Eos % (Auto) Baso % (Auto) Lymph # (Auto) [place] # (Auto) Eos # (Auto) Baso # (Auto) Abs Immat Gran (auto) Absolute Neuts (auto) Absolute Nucleated RBC Nucleated RBC % (auto) Neutrophils % (Manual) Band Neutrophils % Lymphocytes % (Manual) Monocytes % (Manual) Abs Neuts (Manual) Lymphocytes # (Manual) Monocytes # (Manual) Platelet Estimate Plt Morphology Comment RBC Morphology Hypochromasia VBG pH VBG pCO2 VBG pO2 VBG HCO3 VBG O2 Saturation VBG Base Excess Anion Gap Estim Creat Clear Calc Estimated GFR POC Glucose 105 Random Glucose Calcium Magnesium Total Bilirubin Direct Bilirubin AST ALT Alkaline Phosphatase Total Creatine Kinase B-Natriuretic Peptide Total Protein Albumin Lipase TSH Urine Color Urine Appearance Urine pH Ur Specific [place] Urine Protein Urine Glucose (UA) Urine Ketones Urine Blood Urine Nitrite Ur Leukocyte Esterase Salicylates Urine Opiates Screen Urine Fentanyl Screen Acetaminophen Ur Barbiturates Screen Ur Phencyclidine Scrn Ur Amphetamines Screen U Benzodiazepines Scrn Urine Cocaine Screen U Marijuana (THC) Screen COVID-19 (RAF) COVID-19 [employer] Com Assessment and Plan (1) Drug overdose: Status: Acute (2) Hypoxia: Status: Acute (3) Acute kidney insufficiency: Status: Acute (4) New onset a-fib: Status: Acute Plan 41-year-old male with no significant past medical history presented to the hospital with a chief complaint of drug overdose/altered mental status. Drug overdose/altered mental status: Patient took off the market Percocet 30 mg; later mentions is a fake Percocet. Presented with drowsiness/ dizziness/ hypotension/hypoxia status post Narcan in the ER U tox positive for cocaine and fentanyl Mental status improved to baseline as per the girlfriend at bedside Patient currently oriented x3 Poison control was notified Monitor on telemetry Hypoxia Likely secondary to cocaine abuse Improving. Wean down oxygen as tolerated Chest x-ray showed no acute findings. Supportive measures New onset AFib Patient had brief episode of AFib converted normal sinus rhythm Pending echocardiogram TSH normal on the lower end HERNAN Likely prerenal, improving continue IV fluids. Monitor BMP Hypotension In setting of drug overdose Improved, still running soft, Continue maintenance fluids. Elevated troponins Likely in the setting of demand. Patient denies any chest pain. EKG nonischemic. Leukocytosis Likely secondary to sinusitis infection CT head showed paranasal sinus disease with right maxillary sinus possible infection with tented infection Recommended to follow-up with dentist as outpatient Pending ID evaluation Continue p.o. Augmentin DVT prophylaxis SCD boots The need for hospital stay overnight, continue wean down oxygen as tolerated and treatment of acute kidney injury. Pending ID evaluation. Quality Stroke Does the patient have a stroke diagnosis?: No VTE Prior VTE?: No VTE Risk Level:: Medical - moderate - high VTE Device Contraindication: N/A - Device Ordered VTE Drug Contraindication: Treatment Not Indicated
[2021-10-21 12:00] VITALS: BP 119/75; PULSE 98; RESP 20; O2SAT 99
--- NOTE | 2021-10-21 12:34 | P.CDIC_ITS ---
CDI Concurrent Query Documentation Clarification: PHYSICIAN'S DOCUMENTATION REQUEST Date of Query: 10/21/21 1233 Patient Name: Ubaldo Peoples Admit Date: 10/20/21 Dear Doctor, A review of the medical record indicates additional documentation may be needed. Please review below and update the documentation accordingly. Clinical Indicators: Risk Factors/Clinical Indicators/Treatments Took an unknown street drug for pain and became lethargic, incoherent Per MD progress note 10/21/21: Drug overdose/altered mental status: Patient took off the market Percocet 30 mg;? later mentions is a fake Percocet.? Presented with drowsiness/ dizziness/ hypotension/hypoxia Based on the above, could you clarify in the Progress Notes which, if any of the following, is the most likely etiology of the confusion/altered mental status? * Encephalopathy - indicate type such as metabolic, toxic, septic, alcoholic, hypertensive, etc. * Acute delirium - indicate known or suspected etiology, such as postoperative, due to narcotics or other drugs, etc. * Acute or subacute confusional state due to (specify known or suspected etiology) * Other etiology (please specify) * Unable to determine Use of terms such as suspected, likely, concern for, or probable (associated with a specific diagnosis that is being evaluated, monitored, or treated as if it exists) are acceptable and can be coded in the inpatient setting, when documented at the time of discharge. Thank you, Sarika Grigsby RN Extension: [phone] Please use your independent medical judgment in providing your response. THIS QUERY IS PART OF THE PERMANENT MEDICAL RECORD Provider Response: Toxic Encephalopathy
[2021-10-21 13:33] LABS: Glucose, Whole Blood 107 mg/dL (60-115)
[2021-10-21 18:30] LABS: Glucose, Whole Blood 169 mg/dL (60-115)
[2021-10-21] MEDS: Acetaminophen 325 MG TABLET 650 MG PO (18:41)
--- NOTE | 2021-10-21 21:22 | PC.NURSE ---
Patient A&OX3. Pleasant and cooperative. Speech is clear and appropriate. Telemetry ST 100, VSS. LS-Clear/dim. No cough or sob per patient. When patient sleeps, he sleeps hard and snores loudly. BS+. Pt on regular diet and tolerating it well. No c/o N/V. Pt voiding in urinal without difficulties. IV fluids infusing as ordered. PP+, no edema. Pt denies pain/dizziness. Will continue to monitor.
--- NOTE | 2021-10-21 22:14 | P.CNID_ITS ---
History of Present Illness Data of Consult Service Date: 10/21/21 Requesting physician: Adryan Shaw Primary Care Provider: None Physician HPI Reason for consult: right facial pain He presents with facial pain on right with pain causing him to ask friend for pain pill. He received fake Percocet and felt passing out. He came to ER and was hypoxic. He has CT scan and shows right odongenic infection. Review of Systems Review of Systems: Yes all other systems are reviewed and are negative PMFSH Past Medical History Medical History Opioid use disorder Pain, dental Family History Family history: reviewed and not pertinent Social History Social History Household Members: Significant Other Housing: Apartment Do you presently have visiting nurse or other home services: No Patient Tobacco Use Status: Current everyday Tobacco user Tobacco use type: Cigarette Substance Use Type: Marijuana Advance Directives Date on File: 10/20/21 service: No Current occupational status: unemployed Meds Allergies Allergy/AdvReac Type Severity Reaction Status Date / Time No Known Allergies Allergy Verified 10/25/21 10:24 Active Medications: Current Medications Acetaminophen (Acetaminophen 325 Mg Tablet) 650 mg PO Q6H PRN PRN Reason: Pain, Mild (Pain Scale 1-3) Last Admin: 10/21/21 18:41 Dose: 650 mg Documented by: Amoxicillin/Clavulanate Potassium (Amoxicillin/Potassium Clav 875 Mg Tablet) 875 mg PO Q12H [facility] Last Admin: 10/21/21 21:10 Dose: 875 mg Documented by: Dextrose/Sodium Chloride (D5ns) 1,000 mls @ 100 mls/hr IVCONT .Q10H [facility] Last Admin: 10/21/21 09:04 Dose: 100 mls/hr Documented by: Melatonin (Melatonin 3 Mg Tablet) 6 mg PO BEDTIME PRN PRN Reason: Insomnia Senna (Sennosides 8.6 Mg Tablet) 17.2 mg PO BEDTIME PRN PRN Reason: Constipation Sodium Chloride (0.9 % Sodium Chloride Flush 3 Ml Syringe) 3 ml IVFLUSH QSHIFT [facility] Last Admin: 10/21/21 17:35 Dose: Not Given Documented by: Physical Exam Vital Signs: Vital Signs: Last Vital Signs Temp 97 F 10/20/21 19:59 Pulse 98 10/21/21 12:00 Resp 20 10/21/21 12:00 BP 119/75 10/21/21 12:00 Pulse Ox 99 10/21/21 12:00 BMI result Body Mass Index 34.6 Eyes: General: appearance normal, both eyes and all related structures Resp: Other: sinus discomfort right Effort & Inspection: normal respiratory effort Cardio: Rate: regular rate Rhythm: regular rhythm GI: Palpation (GI): Soft to palpation and not firm Results Labs CBC & Chem 7: 10/22/21 06:11 10/22/21 06:11 Labs: Short CBC 10/21/21 Range/Units 06:27 WBC 16.1 H (4.8-10.8) X10*3/uL Hgb 10.2 L (14.0-18.0) g/dl Hct 33.1 L D (42.0-52.0) % Plt Count 249 D (160-400) X10*3/uL BMP 10/21/21 06:27 Sodium 139 Potassium 4.7 Chloride 108 Carbon Dioxide 24 BUN 19 H Creatinine 1.41 H Calcium 8.4 D Assessment and Plan (1) Drug overdose: Status: Acute (2) Pain, dental: Status: Acute More likely due to odontogenic infection Sometimes 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 Follow with dentist.
--- NOTE | 2021-10-22 | ECG_ITS ---
Test Reason : rhythm check Blood Pressure : / mmHG Vent. Rate : 088 BPM Atrial Rate : 088 BPM P-R Int : 140 ms QRS Dur : 086 ms QT Int : 378 ms P-R-T Axes : 033 012 000 degrees QTc Int : 457 ms Normal sinus rhythm Normal ECG When compared with ECG of 21-OCT-2021 15:33, No significant change was found Referred By: Jordin Alcantar Electronically Signed By:EMERY EPPERSON
[2021-10-22 00:09] VITALS: BP 143/94; PULSE 93; RESP 25; O2SAT 93
[2021-10-22] MEDS: Dextrose 5 % and 0.9 % NaCl 1,000 ML 100 ML IVCONT (04:50)
[2021-10-22 04:56] VITALS: BMI 33.6
[2021-10-22 06:56] LABS: Anion Gap 10 (12-20); Blood Urea Nitrogen 9 mg/dL (9-16); Carbon Dioxide 25 mmol/L (22-29); Chloride 107 mmol/L (96-108); Creatinine Clr Calc Pharmacy 151.7; Estimated Glomerular Filt Rate > 60; Glucose Random 126 mg/dL (60-115); Potassium 3.8 mmol/L (3.3-5.1); Sodium 138 mmol/L (135-145)
[2021-10-22 07:06] LABS: Hematocrit 32.2 % (42.0-52.0); Hemoglobin 10.1 g/dl (14.0-18.0); Mean Corpuscular HGB Conc 31.4 g/dl (31.0-36.0); Mean Corpuscular Hemoglobin 27.7 pg (27.0-33.0); Mean Corpuscular Volume 88.5 fL (80.0-98.0); Mean Platelet Volume 10.2 fL (9.4-12.4); Platelet Count 259 X10*3/uL (160-400); Red Blood Count 3.64 X10*6/uL (4.60-5.80); Red Cell Distribution Width 13.2 % (11.0-16.0)
[2021-10-22 07:08] VITALS: BMI 33.6
[2021-10-22 07:43] VITALS: BP 153/93; PULSE 91; RESP 20; TEMP 37.1; O2SAT 95
[2021-10-22] MEDS: Amoxicillin/Potassium Clav 875 MG TABLET PO (08:46)
--- NOTE | 2021-10-22 09:43 | MHC.CM.PN ---
CM has provided Patient and his with a list of area PCP practices in the area.
[2021-10-22 10:55] LABS: Troponin-I High Sensitivity 103.9 ng/L (<3.5-35.0)
[2021-10-22 11:02] VITALS: BP 153/91; PULSE 87; RESP 20; TEMP 37; O2SAT 98
--- NOTE | 2021-10-22 12:06 | PM.DS ---
DS: Providers Provider Date of Service: 10/22/21 Date of admission: 10/20/21 20:15 Primary care physician: None Physician Consults: 10/20/21 21:36 Consult to Infectious Diseases Routine Consulting Provider: Karli Villatoro Reason for consultation: sinusitis; ?fungal hyphae DS: Diagnosis Discharge Diagnosis (1) Drug overdose: Status: Acute (2) Pain, dental: Status: Acute DS: Summary Hospital Course Hospital Course: from initial hpi: Chief Complaint: AMS ?41-year-old male with no significant past medical history presented to the hospital with a chief complaint of drug overdose/altered mental status.? Most of the history obtained from the patient and patient's the girlfriend at bedside.? Reportedly patient has been having toothache and had brought but he thought his of Percocet off the market;? mentioned that it was 30 mg.? He took it and followed by he felt disoriented, lightheaded dizzy could not walk generally weak; sat harm self onto the floor; followed by girlfriend found him on the floor and noted very disoriented subsequently EMS was called in; EMS noted the patient tachycardic to 140s-EKG showed new onset AFib; patient also noted to be drowsy, pale, soft blood pressure; also noted to be saturating 81% on room air; subsequently brought him to the hospital for further evaluation.? Patient denies any loss of consciousness.? Denies any chest pain or palpitations.? At the time of find reports he has a dizziness/ lightheadedness significantly improved.? Denies any postnasal drip. Denies any headaches numbness tingling or focal weakness.? Denies any prior history of cocaine use.? Reports he smokes Ruby.? Review of all other systems is negative except mentioned above ER course: Per ER team patient on presentation noted to be pale with hypotension with systolic in 80s; given IV fluids, Narcan; spoken to poison control who suggested observation; blood pressure gradually improved with IV fluids.? On labs also noted to have elevated creatinine.? U tox positive for cocaine, fentanyl; the follow-up EKG showed normal sinus rhythm.? Admitted to the hospital for further management. hospital course: patient was admitted for acute hypoxic respiratory failure and toxic metabolic encephalopathy, hypotension due to unintentional drug (cocaine, fentanyl) overdose, complicated by brief episode of afib, elevated troponin. he was treated with narcan, mental status and hypoxia resolved. afib did not recur. patient noted to have HERNAN, responded to IVF, creatinine normalized at time of discharge. elevated troponins felt to be due to cardiac strain from hypoxia/overdose, echo was unremarkable. patient noted to have acute sinusitis, ID recommended 10 days of augmentin. patient feeling better and will be discharged home. Time Spent with Patient Time attestation: Total time spent providing and/or coordinating discharge services: Discharge coordination time: Greater than 30 minutes Quality: Stroke Does the patient have a stroke diagnosis?: No Physical Exam Vital Signs: Vital Signs: Last Vital Signs Temp 98.6 F 10/22/21 11:02 Pulse 87 10/22/21 11:02 Resp 20 10/22/21 11:02 BP 153/91 H 10/22/21 11:02 Pulse Ox 98 10/22/21 11:02 BMI result Body Mass Index 33.6 General: AO X 3, no acute distress Resp: CTA bilateral, no accessory muscles used CVS: S1,S2,RRR GI: soft, non tender, non distended Neuro: motor grossly intact, alert Psych: appropriate affect, appropriate insight DS: Data Data Completed and Pending Labs on day of discharge: Laboratory Results - last 24 hr 10/21/21 10/21/21 10/22/21 13:06 18:20 06:11 WBC 15.0 H RBC 3.64 L Hgb 10.1 L Hct 32.2 L MCV 88.5 MCH 27.7 MCHC 31.4 RDW 13.2 Plt Count 259 MPV 10.2 Absolute Nucleated RBC 0.000 Nucleated RBC % (auto) 0.0 Sodium Potassium Chloride Carbon Dioxide Anion Gap BUN Creatinine Estim Creat Clear Calc Estimated GFR POC Glucose 107 169 H Random Glucose Calcium Troponin I High Sens 10/22/21 10/22/21 06:11 10:19 WBC RBC Hgb Hct MCV MCH MCHC RDW Plt Count MPV Absolute Nucleated RBC Nucleated RBC % (auto) Sodium 138 Potassium 3.8 Chloride 107 Carbon Dioxide 25 Anion Gap 10 L BUN 9 D Creatinine 0.83 Estim Creat Clear Calc 151.7 Estimated GFR > 60 POC Glucose Random Glucose 126 H Calcium 9.0 D Troponin I High Sens 103.9 H* Preliminary micro results at discharge 10/21/21 08:59 Blood Culture - Preliminary Blood - Venous No growth after 24 hours. 10/21/21 08:59 Blood Culture - Preliminary Blood - Venous No growth after 24 hours. Discharge Plan Discharge Patient Disposition: Home, Self-Care Discharge Diagnosis: hernan, hypoxia Referrals: Physician,None [Primary Care Provider] - 1 Week Discharge Medications: New amoxicillin-pot clavulanate 875-125 mg Tablet 875 mg PO Q12H Qty: 14 0RF Discharge Orders: Discharge Order (Routine); Ordered 10/22/21 Ordered By: Jordin Alcantar Diet: advance to usual diet Activity on Discharge: As tolerated Stand Alone Forms: Patient Portal Discharge page Care Plan Goals: recovery Health Concerns: dental infection Plan of Treatment: augmentin one more week, no illicit drugs, follow up with dental Assessment: see above
--- NOTE | 2021-10-22 12:11 | MHC.CM.PN ---
Patient has been medically cleared for dc to home today, self care.
== END 2021-10-22 13:36 | disposition home or self-care (01) | DRG 812 ==
LOC: HO.ED 20:24 → HO.EDOVER 20:36 → HO.IMC 10-22 02:47
PROVIDERS: Student in an Organized Health Care Education/Training Program; Admitting Provider Hospitalist; Emergency Provider Emergency Medicine; Visit Provider Internal Medicine
DX: T50.901A Poisoning by unspecified drugs, medicaments and biological substances, accidental (unintentional), initial encounter (principal); J96.01 Acute respiratory failure with hypoxia; G92.8 Other toxic encephalopathy; N17.9 Acute kidney failure, unspecified; D72.829 Elevated white blood cell count, unspecified; I95.2 Hypotension due to drugs; Y92.9 Unspecified place or not applicable; R00.0 Tachycardia, unspecified; Z68.34 Body mass index [BMI] 34.0-34.9, adult; J32.0 Chronic maxillary sinusitis; Z20.822 Contact with and (suspected) exposure to COVID-19; F17.210 Nicotine dependence, cigarettes, uncomplicated; Z71.6 Tobacco abuse counseling; F11.20 Opioid dependence, uncomplicated; Z79.899 Other long term (current) drug therapy
CPT/HCPCS: 36415; 70450; 71045; 80048; 80076; 80143; 80179; 80307; 81003; 82550; 82803; 82947; 83690; 83735; 83880; 84443; 84484; 85007; 85025; 85027; 87040; 87635; 93005; 93306; 96361; 96374; 96375; 99285; 99291; J2405; Q9957

== ENCOUNTER 2021-10-23 12:37 | Emergency (ER) | payer OTHER, MEDICAID, SELFPAY ==
[2021-10-23 12:39] VITALS: BP 148/103; PULSE 106; RESP 20; TEMP 36.2; O2SAT 97; BMI 34.2
--- NOTE | 2021-10-23 12:45 | ED_ITS ---
HPI - General Adult General Chief complaint: General Medical Stated complaint: withdrawls Time Seen by Provider: 10/23/21 12:44 Source: patient Mode of arrival: ambulatory Limitations: no limitations History of Present Illness HPI narrative: Patient is a 41 year old male presenting to the emergency department today in opiate withdrawal. Patient states that he was admitted here after taking a percocet that was laced with fetanyl and accidentally overdosed, last Monday. Patient states that he was discharged from the hospital yesterday, but wasn't given anything to help with the withdrawal and he believes he is experiencing that now. Patient states that he would like to get started on Suboxone. Patient denies any dizziness, lightheadedness, abdominal pain, nausea, vomiting, fever, chills, blurry vision, double vision, loss of vision, chest pain, difficulty breathing, shortness of breath, back pain, night sweats, pain with urination, increased urinary frequency, increased urinary urgency, blood in his urine or stool, syncope or a near syncopal episode, recent trauma or falls, bowel incontinence, bladder incontinence, bowel retention, bladder retention, or any other complaints at this time. Relieving factors: none Exacerbating factors: none Associated symptoms: denies other symptoms Treatments prior to arrival: none Related Data Previous Rx's Medication Instructions Recorded amoxicillin 875 mg-potassium 875 mg PO Q12H #14 tab 10/22/21 clavulanate 125 mg tablet buprenorphine 8 mg-naloxone 2 mg 1 film BUCCAL BID 3 Days #6 ea 10/23/21 sublingual film (Suboxone) naloxone 4 mg/actuation nasal 4 mg INTRANASAL Q2M PRN #2 ea 10/23/21 spray (Narcan) Allergies Allergy/AdvReac Type Severity Reaction Status Date / Time No Known Allergies Allergy Verified 10/20/21 17:20 Review of Systems Constitutional: Constitutional: Reports no additional constitutional complaints, Denies chills, Denies fever(s) and Denies night sweats Eyes: Eyes: Reports no additional eye complaints, Denies blurry vision, Denies change in vision, Denies diplopia, Denies eye discharge, Denies loss of vision and Denies eye pain ENT: Denies dizziness Cardiovascular: Cardiovascular: Reports no additional cardiovascular complaints, Denies chest pain, Denies lightheadedness, Denies Loss of Consciousness and Denies dyspnea Respiratory: Respiratory: Reports no additional respiratory complaints and Denies dyspnea Gastrointestinal: Gastrointestinal: Reports no additional gastrointestinal complaints, Denies abdominal pain, Denies melena, Denies hematochezia, Denies change in bowel habits and Denies change in stool character Genitourinary: Genitourinary: Reports no additional male genitourinary complaints, Denies hematuria, Denies oliguria, Denies difficulty urinating, Denies dysuria, Denies urinary frequency, Denies urinary hesitancy, Denies urinary incontinence and Denies urinary urgency Musculoskeletal: Musculoskeletal: Reports no additional musculoskeletal complaints, Denies numbness and Denies tingling Neurologic: Denies dizziness, Denies loss of vision, Denies numbness and Denies tingling Psychiatric: Psychiatric: Reports no additional psychiatric complaints Endocrine: Endocrine: Reports no additional endocrine complaints Hematologic/Lymphatic: Hematologic/Lymphatic: Reports no additional hematologic/lymphatic complaints Allergic/Immunologic: Allergic/Immunologic: Reports no additional allergic/immunologic complaints PMFSH Past Medical History Attestation statement: The following information was validated with the patient. Source: old records reviewed Medical History Pain, dental Social History Social History Household Members: Significant Other Housing: Apartment Do you presently have visiting nurse or other home services: No Patient Tobacco Use Status: Current everyday Tobacco user Tobacco use type: Cigarette Substance Use Type: Marijuana Advance Directives: No Advance Directives Information Provided: No Advance Directives Date on File: 10/20/21 service: No Current occupational status: unemployed Physical Exam ED Vital Signs: Vital Signs - 24 hr 10/23/21 12:39 Temperature 97.2 F Pulse Rate 106 H Respiratory Rate 20 Blood Pressure 148/103 H Pulse Oximetry 97 BMI result Body Mass Index 34.2 Const General: cooperative, no acute distress, alert and awake Nutritional Appearance: well nourished Orientation/consciousness: patient oriented x3 Limitations: no limitations HENMT Head: Yes normal to inspection and Yes atraumatic Ears: hearing grossly normal bilaterally and external ears normal General nose exam: Normal external nose present, no nasal discharge noted and no epistaxis Face and sinus: Yes normal facial exam, No abrasion and No laceration Mouth: Normal oral and palatal mucosa present, no drooling and no muffled voice Eyes General: appearance normal, both eyes and all related structures Periorbital: periorbital findings normal Eyelids: Yes eyelids normal Conjunctivae: conjunctivae normal Pupils: Equal, round and reactive pupils present EOM: EOMs intact bilaterally Neck Neck: Yes normal visual inspection, Yes full ROM and Yes no lymphadenopathy Chest Chest palpation & inspection: normal inspection of the chest Resp Effort & Inspection: normal respiratory effort and able to speak in complete sentences Auscultation: clear to auscultation bilaterally Cardio Rate: regular rate Rhythm: regular rhythm GI Inspection: Yes normal to inspection Neuro General: patient oriented x3 and moves all extremities Cranial nerves: Yes Equal, round and reactive pupils present Cognition (Neuro): normal cognition Motor exam (neuro): 5/5 motor strength present throughout Sensory Exam: Normal double simultaneous stimulation for sensation Coordination: [id number] test normal Extrem General: Yes normal to inspection, Yes full ROM and Yes capillary refill normal Psych Appearance: grossly normal Mental Status: mental status grossly normal Affect: normal affect Attitude: cooperative Thought process: Normal thought process present Thought content: Normal thought content present Insight: Good insight present (Psych) Medical Decision Making [facility] Narrative Medical decision making narrative: Patient is a 41 year old male presenting to the emergency department today with opiate withdrawal. Patient's physical exam was unremarkable. Patient's urine was positive for fentanyl however, the patient remained persistent that he didn't use since last Monday and his girlfriend in the room confirmed that. I explained my physical exam findings as well as all test results to the patient and the patient's girlfriend. I answered all questions asked by the patient and the patient's girlfriend. Patient received PO Suboxone which he stated helped his symptoms significantly. I stressed the importance of the patient taking his medication as prescribed. I stressed the importance of the patient following up with [his/her/their] primary care provider. I stressed the importance of the patient returning to the emergency department immediately if his] symptoms were to worsen or if he were to develop any dizziness, shortness of breath, difficulty breathing, chest pain, blurry vision, loss of vision, nausea, vomiting, abdominal pain, fever, chills, back pain, or any other complaints. Patient and the patient's girlfriend verbalized agreement and understanding with this treatment plan and discharge. Differential Diagnosis Differential Diagnosis: Opiate withdrawal, opioid abuse Medical Records Medical records reviewed: Yes I reviewed the patient's medical records. Lab Data Lab results reviewed: Yes I reviewed the patient's lab results. Labs: Lab Results 10/23/21 Range/Units 13:11 Urine Opiates Screen Not Detected (Not Detect) Urine Fentanyl Screen POSITIVE H (Not Detect) Ur Barbiturates Screen Not Detected (Not Detect) Ur Phencyclidine Scrn Not Detected (Not Detect) Ur Amphetamines Screen Not Detected (Not Detect) U Benzodiazepines Scrn Not Detected (Not Detect) Urine Cocaine Screen Not Detected (Not Detect) U Marijuana (THC) Screen POSITIVE H (Not Detect) Discharge Plan Discharge Clinical Impression: Opioid abuse, Encounter for monitoring Suboxone maintenance therapy Patient Disposition: Home, Self-Care Instructions: Opioid Withdrawal (ED), Opioid Use Disorder (ED) Additional Instructions: Follow up with your primary care provider. Return to the emergency department immediately if your symptoms worsen or if you develop any dizziness, shortness of breath, difficulty breathing, chest pain, blurry vision, loss of vision, nausea, vomiting, abdominal pain, fever, chills, back pain, or any other complaints. Prescriptions: New buprenorphine-naloxone [Suboxone] 8-2 mg film 1 film buccal BID 3 Days Qty: 6 0RF Rx Instructions: [id number] FOR SUBOXONE RX'S naloxone [Narcan] 4 mg/actuation spray,non-aerosol 4 mg intranasal Q2M PRN (Reason: opioid overdose) Qty: 2 0RF Rx Instructions: spray 1 dose into ONE nostril; alternate nostrils w each dose until help arrives No Action amoxicillin-pot clavulanate 875-125 mg Tablet 875 mg PO Q12H Qty: 14 0RF Referrals: Physician,None [Primary Care Provider] - 2 days Interventions: ED Discharge Assessment Last Done: 10/23/21 14:12 Discharge Date/Time: 10/23/21 14:14 Print Language: Monegasque
[2021-10-23 13:32] LABS: Amphetamine Screen Urine Not Detected (Not Detect); Barbiturates, Urine Not Detected (Not Detect); Benzodiazepines Screen Urine Not Detected (Not Detect); Cannabinoid Screen Urine POSITIVE (Not Detect); Cocaine Screen Urine Not Detected (Not Detect); Fentanyl, urine POSITIVE (Not Detect); Opiate Screen Urine Not Detected (Not Detect); Phencyclidine Screen Urine Not Detected (Not Detect)
[2021-10-23] MEDS: Buprenorphine/Naloxone 4/1 mg FILM 1 FILM SUBLINGUAL (13:57)
--- NOTE | 2021-10-23 13:58 | MHC.RECOVSUP ---
Recovery Support note: Patient is a 41 year old Eritrean speaking male who presented [place] [facility] due to opiate withdrawal. Patient was admitted to [facility] [place] after using a percocet he bought off the street which lead to altered mental status and low O2. Patient reports he has not used since 10/20 and his girlfriend who is present agrees with this. Education on Suboxone and precipitated withdrawal provided. Patient continues to report 10/20 as last use. Plan for patient to be medicated with Suboxone while in the ED and for him to discharge with a prescription to bridge him until Monday. Education and information regarding the [facility] was provided. Patient provided with contact information for this telegraphic typewriter repairer in the event that he has additional questions after discharge. Discussed case with Irma Pyle NP.
== END 2021-10-23 14:14 | disposition home or self-care (01) ==
PROVIDERS: Physician Assistant Medical; Emergency Provider Emergency Medicine Emergency Medical Services
DX: F11.13 Opioid abuse with withdrawal (principal); F12.90 Cannabis use, unspecified, uncomplicated
CPT/HCPCS: 80307; 99283

== ENCOUNTER 2021-10-25 09:56 | Outpatient (REF) | payer OTHER, MEDICAID, SELFPAY ==
[2021-10-25 18:35] LABS: Fentanyl, urine POSITIVE (Not Detect)
== END 2021-10-25 09:57 | disposition home or self-care (01) ==
LOC: HO.LNP 09:56
PROVIDERS: Visit Provider Internal Medicine
DX: F11.20 Opioid dependence, uncomplicated (principal); N28.9 Disorder of kidney and ureter, unspecified; I95.9 Hypotension, unspecified
CPT/HCPCS: 80305; 80307

== ENCOUNTER 2021-11-01 10:36 | Outpatient (REF) | payer OTHER, MEDICAID, SELFPAY ==
[2021-11-02 04:30] LABS: HIV AB/AG Nonreactive (Nonreactive); HIV Num 1 0.15 S/CO (0.00-0.99); ~HepC Num1 0.33 S/CO (0.00-0.79); ~Hepatitis C Antibody Nonreactive (Nonreactive)
== END 2021-11-01 10:37 | disposition home or self-care (01) ==
LOC: HO.LAB 10:36
PROVIDERS: Visit Provider Internal Medicine
DX: Z11.4 Encounter for screening for human immunodeficiency virus [HIV] (principal); F11.20 Opioid dependence, uncomplicated; Z79.899 Other long term (current) drug therapy
CPT/HCPCS: 36415; 80305; 86803; 87389

== ENCOUNTER 2021-11-08 11:38 | Outpatient (REF) | payer OTHER, MEDICAID, SELFPAY ==
[2021-11-08 18:47] LABS: Fentanyl, urine Not Detected (Not Detect)
== END 2021-11-08 11:39 | disposition home or self-care (01) ==
LOC: HO.LNP 11:38
PROVIDERS: Visit Provider Internal Medicine
DX: F11.20 Opioid dependence, uncomplicated (principal)
CPT/HCPCS: 80305; 80307

== ENCOUNTER → 2021-11-15 12:58 | Outpatient (BNVA) | payer OTHER, MEDICAID, SELFPAY | PROVIDERS: Visit Provider Internal Medicine | DX: Z51.81 Encounter for therapeutic drug level monitoring (principal); F11.20 Opioid dependence, uncomplicated | CPT/HCPCS: 80305 ==

== ENCOUNTER → 2021-12-01 13:11 | Outpatient (BNVA) | payer OTHER, MEDICAID, SELFPAY | PROVIDERS: Visit Provider Internal Medicine | DX: Z51.81 Encounter for therapeutic drug level monitoring (principal); F11.20 Opioid dependence, uncomplicated | CPT/HCPCS: 80305 ==

== ENCOUNTER → 2021-12-17 13:27 | Outpatient (BNVA) | payer OTHER, MEDICAID, SELFPAY | PROVIDERS: Visit Provider Internal Medicine | DX: Z51.81 Encounter for therapeutic drug level monitoring (principal); F11.20 Opioid dependence, uncomplicated | CPT/HCPCS: 80305 ==

== ENCOUNTER → 2022-01-05 14:48 | Outpatient (BNVA) | payer OTHER, MEDICAID, SELFPAY | PROVIDERS: Visit Provider Internal Medicine | DX: Z51.81 Encounter for therapeutic drug level monitoring (principal); F11.20 Opioid dependence, uncomplicated | CPT/HCPCS: 80305 ==

== ENCOUNTER 2022-01-05 17:31 | Outpatient (REF) | payer OTHER, MEDICAID, SELFPAY ==
[2022-01-05 18:09] LABS: Fentanyl, urine Not Detected (Not Detect)
== END 2022-01-05 17:32 | disposition home or self-care (01) ==
LOC: HO.LNP 17:31
PROVIDERS: Visit Provider Internal Medicine
DX: F11.20 Opioid dependence, uncomplicated (principal); Z79.899 Other long term (current) drug therapy
CPT/HCPCS: 80307

== ENCOUNTER → 2022-01-21 10:39 | Outpatient (BNVA) | payer OTHER, MEDICAID, SELFPAY | PROVIDERS: Visit Provider Internal Medicine | DX: Z51.81 Encounter for therapeutic drug level monitoring (principal); F11.20 Opioid dependence, uncomplicated | CPT/HCPCS: 80305 ==

== ENCOUNTER → 2022-02-18 13:50 | Outpatient (BNVA) | payer OTHER, MEDICAID, SELFPAY | PROVIDERS: Visit Provider Internal Medicine | DX: F11.20 Opioid dependence, uncomplicated (principal); Z51.81 Encounter for therapeutic drug level monitoring; Z79.899 Other long term (current) drug therapy | CPT/HCPCS: 80305 ==

== ENCOUNTER → 2022-07-21 11:21 | Outpatient (BNVA) | payer OTHER, MEDICAID, SELFPAY | PROVIDERS: PCP Family Medicine; Visit Provider Nurse Practitioner Psychiatric/Mental Health | DX: Z51.81 Encounter for therapeutic drug level monitoring (principal); F11.20 Opioid dependence, uncomplicated | CPT/HCPCS: 80305 ==

== ENCOUNTER → 2022-08-17 13:46 | Outpatient (BNVA) | payer OTHER, MEDICAID, SELFPAY | PROVIDERS: PCP Family Medicine; Visit Provider Nurse Practitioner Psychiatric/Mental Health | DX: F11.20 Opioid dependence, uncomplicated (principal); Z51.81 Encounter for therapeutic drug level monitoring; Z79.899 Other long term (current) drug therapy | CPT/HCPCS: 80305 ==

== ENCOUNTER → 2022-09-21 13:39 | Outpatient (BNVA) | payer OTHER, MEDICAID, SELFPAY | PROVIDERS: PCP Family Medicine; Visit Provider Nurse Practitioner Psychiatric/Mental Health | DX: Z51.81 Encounter for therapeutic drug level monitoring (principal) ==

== ENCOUNTER → 2022-10-19 13:46 | Outpatient (BNVA) | payer OTHER, MEDICAID, SELFPAY | PROVIDERS: PCP Family Medicine; Visit Provider Nurse Practitioner Psychiatric/Mental Health | DX: F11.20 Opioid dependence, uncomplicated (principal) | CPT/HCPCS: 80305; 99212 ==

== ENCOUNTER → 2022-11-22 13:57 | Outpatient (BNVA) | payer OTHER, MEDICAID, SELFPAY | PROVIDERS: PCP Family Medicine; Visit Provider Nurse Practitioner Psychiatric/Mental Health | DX: Z51.81 Encounter for therapeutic drug level monitoring (principal) ==

== ENCOUNTER → 2023-02-01 14:27 | Outpatient (BNVA) | payer OTHER, MEDICAID, SELFPAY | PROVIDERS: PCP Family Medicine; Visit Provider Nurse Practitioner Psychiatric/Mental Health | DX: F11.20 Opioid dependence, uncomplicated (principal) | CPT/HCPCS: 80305 ==

== ENCOUNTER 2023-04-17 16:13 | Outpatient (AMB) | payer OTHER, SELFPAY ==
--- NOTE | 2023-04-17 16:15 | A.OFFVIS_ITS ---
Intake Vital Signs 04/17/23 16:19 BP 136/82 Blood Pressure Location Lt radial Position Sitting Pulse 106 H Pulse Source Pulse Oximeter Pulse Oximetry (%) 95 Oxygen Delivery Method Room Air Intake Visit Reasons: MAT Visit Intake Note: the patient presents for a mat visit Reliability Technicians Required: No Allergies No Known Allergies Allergy (Verified 04/17/23 16:20) Do you need a note to return to daycare/school/sports/work: No HPI MAT Visit HPI Details Pt presents for OUD treatment follow up Currently being prescribed Suboxone 8 mg b.i.d. Denies any side effects related to medication Continues to do well with recovery. Excited to share that he went on a cruise for his daughter's 15th birthday. Reflecting on all of the positive things are happening in his life since he stopped using substances. [facility] Medical History Anxiety Opioid use disorder Pain, dental Family History Mother Cervical cancer Social History Household Members: Significant Other Housing: Apartment Do you presently have visiting nurse or other home services: No Patient Tobacco Use Status: Current everyday Tobacco user Tobacco use type: Cigarette e-Cigarette/Vaping Use: Never Used Second Hand Smoke Exposure: No Substance Use Type: Marijuana Advance Directives Date on File: 10/20/21 service: No Current occupational status: unemployed Cognitive needs: No Hearing needs: No Vision needs: No Review of Systems Const Reports as per HPI and Reports no additional complaints Physical Exam Vital Signs: Last Vital Signs Pulse 106 H 04/17/23 16:19 BP 136/82 04/17/23 16:19 Pulse Ox 95 04/17/23 16:19 Oxygen Delivery Method Room Air 04/17/23 16:19 Const General: cooperative, healthy appearing, comfortable, no acute distress and alert Nutritional Appearance: well nourished Orientation/consciousness: patient oriented x3 Limitations: no limitations Neuro General: patient oriented x3 Psych Appearance: well kempt Mental Status: mental status grossly normal Speech and movement: Normal speech and movement present Affect: normal affect Attitude: cooperative Thought process: Normal thought process present Thought content: Normal thought content present Insight: Good insight present (Psych) Judgement: Good judgement present (Psych) Assessment & Plan Assessment & Plan (1) Opioid use disorder in remission: Code(s): F11.91 - Opioid use, unspecified, in remission Plan: * continue suboxone at current dose * follow up 8 weeks Medications: Refilled buprenorphine-naloxone 8-2 mg (Suboxone) 1 film sublingual BID 60 ea 1RF 30 days Coding Level of Care Code Est Pt Level 3 (42368) Diagnoses Opioid use disorder in remission F11.91
[2023-04-17 16:19] VITALS: BP 136/82; PULSE 106; O2SAT 95
== END 2023-04-17 16:44 | disposition home or self-care (01) ==
LOC: HO.HCC 16:13
PROVIDERS: PCP Family Medicine; Visit Provider Nurse Practitioner Psychiatric/Mental Health
DX: F11.91 Opioid use, unspecified, in remission (principal)
CPT/HCPCS: 99213

== ENCOUNTER → 2023-04-17 16:13 | Outpatient (BNVA) | payer OTHER, SELFPAY | PROVIDERS: PCP Family Medicine; Visit Provider Nurse Practitioner Psychiatric/Mental Health | DX: Z51.81 Encounter for therapeutic drug level monitoring (principal); F11.90 Opioid use, unspecified, uncomplicated ==

== ENCOUNTER 2023-06-26 16:16 | Outpatient (AMB) | payer OTHER, SELFPAY ==
--- NOTE | 2023-06-26 16:17 | MHC.OFFVIS ---
Intake Vital Signs 06/26/23 16:22 BP 128/76 Blood Pressure Location Lt radial Position Sitting Pulse 94 Pulse Source Pulse Oximeter Pulse Oximetry (%) 96 Oxygen Delivery Method Room Air Intake Visit Reasons: MAT Visit Intake Note: THE PATIENT PRESENTS FOR A MAT VISIT Safety Deposit Clerk Required: No Allergies No Known Allergies Allergy (Verified 06/26/23 16:23) Medication List - Last Reconciled 06/26/23 by Caryn Bates NP buprenorphine-naloxone 8-2 mg (Suboxone) 1 film sublingual BID 30 days naloxone 4 mg/actuation (Narcan) 4 mg intranasal Q2M PRN Do you need a note to return to daycare/school/sports/work: No HPI MAT Visit HPI Details Pt presents for LIZZETTE treatment and follow up Works in [employer] time check[employer], says his job keeps him busy. Reports he has been in recovery x 2 years. No concerns related to recovery or suboxone- denies side effects, finds current dose effective [facility] Medical History Anxiety Opioid use disorder Pain, dental Family History Mother Cervical cancer Social History Household Members: Significant Other Housing: Apartment Do you presently have visiting nurse or other home services: No Patient Tobacco Use Status: Current everyday Tobacco user Tobacco use type: Cigarette e-Cigarette/Vaping Use: Never Used Second Hand Smoke Exposure: No Substance Use Type: Marijuana Advance Directives Date on File: 10/20/21 service: No Current occupational status: unemployed Cognitive needs: No Hearing needs: No Vision needs: No Review of Systems Const Reports as per HPI Physical Exam Vital Signs: Last Vital Signs Pulse 94 06/26/23 16:22 BP 128/76 06/26/23 16:22 Pulse Ox 96 06/26/23 16:22 Oxygen Delivery Method Room Air 06/26/23 16:22 Const General: cooperative Resp Effort & Inspection: normal respiratory effort Skin General skin exam: no rashes or lesions noted Psych Appearance: grossly normal Mental Status: mental status grossly normal Speech and movement: Normal speech and movement present Attitude: cooperative Assessment & Plan Assessment & Plan (1) Opioid use disorder in remission: Code(s): F11.91 - Opioid use, unspecified, in remission Plan: Continue suboxone at current dose. Follow up in 8 weeks. Plan reviewed with JOSE A Bates Instructed to call clinic with questions or if he needs to be seen sooner. Medications: Refilled buprenorphine-naloxone 8-2 mg (Suboxone) 1 film sublingual BID 60 ea 1RF 30 days Coding Level of Care Code Est Pt Level 3 (35976) Diagnoses Opioid use disorder in remission F11.91
[2023-06-26 16:22] VITALS: BP 128/76; PULSE 94; O2SAT 96
== END 2023-06-26 16:33 | disposition home or self-care (01) ==
PROVIDERS: PCP Family Medicine; Visit Provider Nurse Practitioner Psychiatric/Mental Health
DX: F11.91 Opioid use, unspecified, in remission (principal)
CPT/HCPCS: 99213

== ENCOUNTER → 2023-06-26 16:16 | Outpatient (BNVA) | payer OTHER, SELFPAY | PROVIDERS: PCP Family Medicine; Visit Provider Nurse Practitioner Psychiatric/Mental Health ==

== ENCOUNTER 2023-09-04 16:09 | Outpatient (AMB) | payer OTHER, SELFPAY ==
--- NOTE | 2023-09-04 16:10 | MHC.AM.SUB ---
Intake Vital Signs 09/04/23 16:15 BP 130/72 Blood Pressure Location Lt radial Position Sitting Pulse 99 Pulse Source Pulse Oximeter Pulse Oximetry (%) 95 Oxygen Delivery Method Room Air Intake Visit Reasons: MAT Visit Intake Note: The Patient is here for a mat visit Job Site Superintendent Required: No Allergies No Known Allergies Allergy (Verified 09/04/23 16:16) Do you need a note to return to daycare/school/sports/work: No HPI MAT Visit HPI Details Patient presents for treatment follow up Currently prescribed 8mg BID Has been trying to reduce dose, but has issues with back discomfort one he lowers dose Advised to reduce dose by very small amounts No issues or questions to report [facility] Medical History Anxiety Opioid use disorder Pain, dental Family History Mother Cervical cancer Social History Household Members: Significant Other Housing: Apartment Do you presently have visiting nurse or other home services: No Patient Tobacco Use Status: Current everyday Tobacco user Tobacco use type: Cigarette e-Cigarette/Vaping Use: Never Used Second Hand Smoke Exposure: No Substance Use Type: Marijuana Advance Directives Date on File: 10/20/21 service: No Current occupational status: unemployed Cognitive needs: No Hearing needs: No Vision needs: No Review of Systems Const Reports as per HPI and Reports no additional complaints Physical Exam Vital Signs: Last Vital Signs Pulse 99 09/04/23 16:15 BP 130/72 09/04/23 16:15 Pulse Ox 95 09/04/23 16:15 Oxygen Delivery Method Room Air 09/04/23 16:15 Const General: cooperative Resp Effort & Inspection: normal respiratory effort Skin General skin exam: no rashes or lesions noted Psych Appearance: grossly normal Mental Status: mental status grossly normal Speech and movement: Normal speech and movement present Attitude: cooperative Assessment & Plan Assessment & Plan (1) Opioid use disorder in remission: Code(s): F11.91 - Opioid use, unspecified, in remission Plan: Continue suboxone at current dose. Follow up in 8 weeks. Medications: Refilled buprenorphine-naloxone 8-2 mg (Suboxone) 1 film sublingual BID 30 days 60 ea 1RF Coding Level of Care Code Est Pt Level 3 (01110) Diagnoses Opioid use disorder in remission F11.91
[2023-09-04 16:15] VITALS: BP 130/72; PULSE 99; O2SAT 95
== END 2023-09-04 16:45 | disposition home or self-care (01) ==
PROVIDERS: PCP Family Medicine; Visit Provider Nurse Practitioner Psychiatric/Mental Health
DX: F11.91 Opioid use, unspecified, in remission (principal)
CPT/HCPCS: 99213

== ENCOUNTER → 2023-09-04 16:09 | Outpatient (BNVA) | payer OTHER, SELFPAY | PROVIDERS: PCP Family Medicine; Visit Provider Nurse Practitioner Psychiatric/Mental Health ==

== ENCOUNTER 2024-04-03 15:51 | Outpatient (AMB) | payer OTHER, SELFPAY ==
--- NOTE | 2024-04-03 16:10 | A.OFFVISCC_ITS ---
Intake Visit Reasons: Restart Allergies No Known Allergies Allergy (Verified 09/04/23 16:16) HPI HPI Restart: Details: Patient presents to re-establish care Previously on 8mg BID Was trying to taper off of suboxone on his own last appt in August 2023 Has decreased to 8mg daily --4mg BID Used cocaine due to extreme fatigue PFSH Medical History Anxiety Opioid use disorder Pain, dental Family History Mother Cervical cancer Social History Household Members: Significant Other Housing: Apartment Do you presently have visiting nurse or other home services: No Patient Tobacco Use Status: Current everyday Tobacco user Tobacco use type: Cigarette e-Cigarette/Vaping Use: Never Used Second Hand Smoke Exposure: No Substance Use Type: Marijuana Advance Directives Date on File: 10/20/21 service: No Current occupational status: unemployed Cognitive needs: No Hearing needs: No Vision needs: No Review of Systems Const Reports as per HPI Physical Exam Const General: cooperative, healthy appearing, no acute distress and well groomed Assessment & Plan Assessment & Plan (1) Opioid use disorder in remission: Code(s): F11.91 - Opioid use, unspecified, in remission Category: Medical Plan: * restart subxone at 8mg daily * discussed injection * follow up 4 weeks due to work Medications: Changed From buprenorphine-naloxone 8-2 mg 1 film sublingual BID 30 days 60 ea 1RF To buprenorphine-naloxone 8-2 mg (Suboxone) 1 film sublingual DAILY 30 ea 0RF
== END 2024-04-03 16:22 | disposition home or self-care (01) ==
PROVIDERS: PCP Family Medicine; Visit Provider Nurse Practitioner Psychiatric/Mental Health
DX: F11.91 Opioid use, unspecified, in remission (principal)
CPT/HCPCS: 99214

== ENCOUNTER → 2024-04-03 15:51 | Outpatient (BNVA) | payer OTHER, SELFPAY | PROVIDERS: PCP Family Medicine; Visit Provider Nurse Practitioner Psychiatric/Mental Health ==

== ENCOUNTER 2024-08-21 15:02 | Outpatient (AMB) | payer OTHER, SELFPAY ==
--- NOTE | 2024-08-21 15:23 | MHC.AM.SUB ---
Intake Visit Reasons: MAT Office Allergies No Known Allergies Allergy (Verified 09/04/23 16:16) HPI HPI MAT Office: Details: Patient presents for follow up Currently prescribed Suboxone 8mg daily Tolerating current dose Reports he is doing well with recovery No substance use since October 2021 Currently working FT, schedule 8-5:30pm Looking for a new job, with a better schedule so he can be home for his daughter after school Needs to have labs drawn Considering the injection Review of Systems Const Reports as per HPI and Reports no additional complaints Physical Exam Const General: cooperative, healthy appearing and well groomed Limitations: no limitations Psych Appearance: well kempt Speech and movement: Normal speech and movement present Affect: normal affect Attitude: cooperative Thought process: Normal thought process present Thought content: Normal thought content present Insight: Good insight present (Psych) Judgement: Good judgement present (Psych) [facility] Medical History (Updated 08/21/24 @ 15:37 by Irma Pyle CNP) Anxiety Opioid use disorder Pain, dental Family History Mother Cervical cancer Social History Household Members: Significant Other Housing: Apartment Do you presently have visiting nurse or other home services: No Patient Tobacco Use Status: Current everyday Tobacco user Tobacco use type: Cigarette e-Cigarette/Vaping Use: Never Used Second Hand Smoke Exposure: No Substance Use Type: Marijuana Advance Directives Date on File: 10/20/21 service: No Current occupational status: unemployed Cognitive needs: No Hearing needs: No Vision needs: No Assessment & Plan Assessment & Plan (1) Opioid use disorder in remission: Code(s): F11.91 - Opioid use, unspecified, in remission Category: Medical Plan: continue suboxone at current dose follow up 5 weeks telehealth Medications: Refilled buprenorphine-naloxone 8-2 mg (Suboxone) 1 film sublingual DAILY 30 ea 0RF
== END 2024-08-21 15:48 | disposition home or self-care (01) ==
PROVIDERS: PCP Family Medicine; Visit Provider Nurse Practitioner Psychiatric/Mental Health
DX: F11.91 Opioid use, unspecified, in remission (principal)
CPT/HCPCS: 99213

== ENCOUNTER → 2024-08-21 15:02 | Outpatient (BNVA) | payer OTHER, SELFPAY | PROVIDERS: PCP Family Medicine; Visit Provider Nurse Practitioner Psychiatric/Mental Health ==

== ENCOUNTER 2024-10-16 12:52 | Outpatient (AMB) | payer OTHER, SELFPAY ==
--- NOTE | 2024-10-16 12:53 | MHC.AM.SUB ---
Intake Visit Reasons: MAT Tele Allergies No Known Allergies Allergy (Verified 09/04/23 16:16) [facility] MAT Tele: Details: Patient presents for follow up via telehealth Currently prescribed Suboxone 8mg QD Tolerating current dose Still working FT No issues related to medication Review of Systems Const Reports as per [facility] Telehealth Telehealth Telehealth Platform: Telephone Location of provider rendering services: practice address Location of patient: other Patient Identification confirmed using: Name, : Yes Telehealth method: voice only Patient verbally consented to treatment: Yes Patient verbally consented to billing insurance company: Yes Minutes spent on Phone/Video with Pt.: 12 PENDING SALE TO [facility] Medical History (Updated 08/21/24 @ 15:37 by Irma Pyle CNP) Anxiety Opioid use disorder Pain, dental Family History Mother Cervical cancer Social History Household Members: Significant Other Housing: Apartment Do you presently have visiting nurse or other home services: No Patient Tobacco Use Status: Current everyday Tobacco user Tobacco use type: Cigarette e-Cigarette/Vaping Use: Never Used Second Hand Smoke Exposure: No Substance Use Type: Marijuana Advance Directives Date on File: 10/20/21 service: No Current occupational status: unemployed Cognitive needs: No Hearing needs: No Vision needs: No Assessment & Plan Assessment & Plan (1) Opioid use disorder in remission: Code(s): F11.91 - Opioid use, unspecified, in remission Category: Medical Plan: continue suboxone at current dose follow up 2 months Medications: Refilled buprenorphine-naloxone 8-2 mg (Suboxone) 1 film sublingual DAILY 30 ea 1RF
== END 2024-10-16 13:09 | disposition home or self-care (01) ==
LOC: HO.HCC 12:53
PROVIDERS: PCP Family Medicine; Visit Provider Nurse Practitioner Psychiatric/Mental Health
DX: F11.91 Opioid use, unspecified, in remission (principal)
CPT/HCPCS: 99213

== ENCOUNTER 2025-01-10 14:44 | Outpatient (AMB) | payer OTHER, SELFPAY ==
[2025-01-10 14:52] VITALS: PULSE 127; O2SAT 98
--- NOTE | 2025-01-10 14:52 | MHC.OFFVIS ---
Vital Signs 01/10/25 14:52 Pulse 127 H Pulse Source Pulse Oximeter Pulse Oximetry (%) 98 Oxygen Delivery Method Room Air Intake Visit Reasons: MAT Allergies No Known Allergies Allergy (Verified 01/10/25 14:52) HPI Comments Details: She is doing well. She has no complaints. [facility] Medical History Anxiety Opioid use disorder Pain, dental Family History Mother Cervical cancer Social History Household Members: Significant Other Housing: Apartment Do you presently have visiting nurse or other home services: No Patient Tobacco Use Status: Current everyday Tobacco user Tobacco use type: Cigarette e-Cigarette/Vaping Use: Never Used Second Hand Smoke Exposure: No Substance Use Type: Marijuana Advance Directives Date on File: 10/20/21 service: No Current occupational status: unemployed Cognitive needs: No Hearing needs: No Vision needs: No Review of Systems Const All systems reviewed & are unremarkable except as noted in HPI and below Physical Exam Vital Signs: Last Vital Signs Pulse 127 H 01/10/25 14:52 Pulse Ox 98 01/10/25 14:52 Oxygen Delivery Method Room Air 01/10/25 14:52 Const General: cooperative Assessment & Plan Assessment & Plan (1) Opioid use disorder in remission: Comment: He is doing well Code(s): F11.91 - Opioid use, unspecified, in remission Category: Medical Plan: Would continue current Suboxone schedule. See in two months. Suboxone 8/, 30 daily and one refill. Coding Level of Care Code Est Pt Level 3 (45031) Diagnoses Opioid use disorder in remission F11.91
== END 2025-01-10 15:31 | disposition home or self-care (01) ==
LOC: HO.HCC 14:44
PROVIDERS: PCP Family Medicine; Visit Provider Internal Medicine
DX: F11.91 Opioid use, unspecified, in remission (principal)
CPT/HCPCS: 99213

== ENCOUNTER → 2025-01-10 14:44 | Outpatient (BNVA) | payer OTHER, SELFPAY | PROVIDERS: PCP Family Medicine; Visit Provider Internal Medicine ==

== ENCOUNTER 2025-03-25 16:02 | Outpatient (AMB) | payer OTHER, MEDICAID, SELFPAY ==
[2025-03-25 16:08] VITALS: BP 140/88; PULSE 90; O2SAT 98
--- NOTE | 2025-03-25 16:08 | A.OFFVIS_ITS ---
Vital Signs 03/25/25 16:08 Weight 250 lb BP 140/88 H Pulse 90 Pulse Oximetry (%) 98 Intake Visit Reasons: MAT Allergies No Known Allergies Allergy (Verified 03/25/25 16:09) HPI Comments Details: A 44-year-old male presents for follow-up visit r/t LIZZETTE in remission with buprenorphine-naloxone 8-2 mg daily. Denies use of opiates, alcohol, and other substances. Reports smoking cannabis on a daily basis. Continues to work full- time and is looking forward to going on vacation. [facility] Medical History Anxiety Opioid use disorder Pain, dental Family History Mother Cervical cancer Social History Household Members: Significant Other Housing: Apartment Do you presently have visiting nurse or other home services: No Patient Tobacco Use Status: Current everyday Tobacco user Tobacco use type: Cigarette e-Cigarette/Vaping Use: Never Used Second Hand Smoke Exposure: No Substance Use Type: Marijuana Advance Directives Date on File: 10/20/21 service: No Current occupational status: unemployed Cognitive needs: No Hearing needs: No Vision needs: No Review of Systems Const All systems reviewed & are unremarkable except as noted in HPI and below Physical Exam Vital Signs: Last Vital Signs Pulse 90 03/25/25 16:08 BP 140/88 H 03/25/25 16:08 Pulse Ox 98 03/25/25 16:08 Const General: cooperative and well groomed Orientation/consciousness: patient oriented x3 Neuro General: patient oriented x3 Psych Appearance: well kempt Mental Status: mental status grossly normal Speech and movement: Normal speech and movement present Affect: normal affect Attitude: cooperative Thought process: Normal thought process present Thought content: Normal thought content present Insight: Good insight present (Psych) Judgement: Good judgement present (Psych) Assessment & Plan Assessment & Plan (1) Opioid use disorder in remission: Comment: He is doing well Code(s): F11.91 - Opioid use, unspecified, in remission Category: Medical Plan The plan of care is to continue with buprenorphine-naloxone 8-2 mg daily and utilize risk reduction activities to minimize cannabis use. Medications: Refilled buprenorphine-naloxone 8-2 mg (Suboxone) 1 film sublingual DAILY 30 ea 1RF Patient Instructions: - continue with buprenorphine-naloxone as prescribed. - utilize risk reduction activities to minimize cannabis use. - Call with questions, concerns, or to report side effects/new onset of symptoms to [facility]. - The patient verbalized understanding and agreed with plan of care. Coding Level of Care Code Est Pt Level 3 (87245) Diagnoses Opioid use disorder in remission F11.91
== END 2025-03-25 17:30 ==
LOC: HO.HCC 16:02
PROVIDERS: PCP Family Medicine; Visit Provider Clinical Nurse Specialist Psychiatric/Mental Health
DX: F11.91 Opioid use, unspecified, in remission (principal)
CPT/HCPCS: 99213